=== PATIENT | male | born 1930 | race Caucasian/White ===

== ENCOUNTER 2019-07-19 14:39 | Inpatient (IN) | payer MEDICARE, BC ==
[2019-07-19] MEDS ORDERED: ORPHENADRINE 30 MG/ML 2 ML VIAL IVP STA (14:52)
--- NOTE | 2019-07-19 15:18 | ED ---
Back Pain HPI <Lalo Lewis - Last Filed: 07/19/19 18:22> - General Source: patient, EMS, RN notes reviewed, old records reviewed Limitations: physical limitation <Zoila Jo - Last Filed: 07/19/19 19:45> - General Chief Complaint: Back Pain/Injury Stated Complaint: Flank/ Back Pain Time Seen by Provider: 07/19/19 14:41 - History of Present Illness Initial Comments: Patient is a 89-year-old male presents emergency department today for evaluation with chief complaint of left-sided rib pain, mid back pain after twisting motion at home. Patient reports that his pain is worse with movement specifically with any left arm raising above his head. He states that he has no significant abdominal pain. He reports no radiation down the leg. He denies any change in urination or bowel habits. Patient reports that he does have history of hypertension and is compliant with medication. Patient arrives via EMS today. Patient denies any recent fever, chills, shortness of breath, chest pain, back pain, abdominal pain, nausea vomiting, numbness or tingling, dysuria or hematuria, constipation or diarrhea, headaches or visual changes, or any other current symptoms (Zoila Jo) - Related Data Home Medications Medication Instructions Recorded Confirmed Atenolol 25 mg PO DAILY 07/19/19 07/19/19 Hydrochlorothiazide 12.5 mg PO DAILY 07/19/19 07/19/19 Simvastatin 40 mg PO DAILY 07/19/19 07/19/19 Allergies Allergy/AdvReac Type Severity Reaction Status Date / Time No Known Allergies Allergy Verified 07/19/19 14:51 Review of Systems ROS Other: All systems not noted in ROS Statement are negative. <Lalo Lewis - Last Filed: 07/19/19 18:22> ROS Other: All systems not noted in ROS Statement are negative. <Zoila Jo - Last Filed: 07/19/19 19:45> ROS Statement: Those systems with pertinent positive or pertinent negative responses have been documented in the HPI. Past Medical History Past Medical History: Hyperlipidemia, Hypertension History of Any Multi-Drug Resistant Organisms: None Reported Past Surgical History: No Surgical Hx Reported Past Psychological History: No Psychological Hx Reported Smoking Status: Former smoker Past Alcohol Use History: None Reported Past Drug Use History: None Reported <Zoila Jo - Last Filed: 07/19/19 19:45> General Exam Limitations: physical limitation General appearance: alert, in no apparent distress Head exam: Present: atraumatic, normocephalic, normal inspection Eye exam: Present: normal appearance, PERRL, EOMI. Absent: scleral icterus, conjunctival injection, periorbital swelling ENT exam: Present: normal exam, mucous membranes moist Neck exam: Present: normal inspection. Absent: tenderness, meningismus, lymphadenopathy Respiratory exam: Present: normal lung sounds bilaterally. Absent: respiratory distress, wheezes, rales, rhonchi, stridor Cardiovascular Exam: Present: regular rate GI/Abdominal exam: Present: soft, normal bowel sounds. Absent: distended, tenderness, guarding, rebound, rigid Extremities exam: Present: normal inspection, full ROM, normal capillary refill. Absent: tenderness, pedal edema, joint swelling, calf tenderness Back exam: Present: normal inspection, tenderness (mid thoracic and lumbar spine and left rib area) Neurological exam: Present: alert, oriented X3, CN II-XII intact Psychiatric exam: Present: normal affect, normal mood Skin exam: Present: warm, dry, intact, normal color. Absent: rash <Zoila Jo - Last Filed: 07/19/19 19:45> - General Exam Comments Initial Comments: 89 year old male, no acute distress. (Zoila Jo) Course Vital Signs 07/19/19 07/19/19 07/19/19 14:47 16:00 17:20 Temperature 98.1 F Pulse Rate 69 88 87 Respiratory 20 20 26 H Rate Blood Pressure 180/90 175/74 186/92 O2 Sat by Pulse 95 97 90 L Oximetry 07/19/19 07/19/19 07/19/19 17:38 18:00 18:30 Temperature Pulse Rate 103 H 77 69 Respiratory 30 H 25 H 24 Rate Blood Pressure 165/82 156/82 153/79 O2 Sat by Pulse 90 L 97 97 Oximetry 07/19/19 18:50 Temperature Pulse Rate 83 Respiratory 24 Rate Blood Pressure 153/71 O2 Sat by Pulse 99 Oximetry Medical Decision Making - Lab Data Result diagrams: 07/19/19 15:00 07/19/19 15:00 <Lalo Lewis - Last Filed: 07/19/19 18:22> - Lab Data Result diagrams: 07/19/19 15:00 07/19/19 15:00 - Radiology Data Radiology results: report reviewed <Zoila Jo - Last Filed: 07/19/19 19:45> - Medical Decision Making Patient reevaluated by myself, Dr. Lewis. Patient denies any dyspnea prior to computed tomography scan. Patient presented with respirator distress following computed tomography scan. Patient and family updated. Patient does have rales diffusely on exam. CT report reviewed. Case was discussed with Dr. Webster, who will consult. Patient is in no respiratory distress while on BiPAP. (aLlo Lewis) Patient's an 89-year-old male who presents emergency department today with initial onset of thoracic and lumbar back pain with twisting motion reading on the left rib. Patient arrives hypertensive was complaining of some pain. At this time Patient is x-rays were shown concern for some compression fracture of T 12 and L1. Discussed the concern for possible aorta after medic change on x- ray and computed tomography scan was ordered with patient's back discomfort and this history. Patient had CAT scan of abdomen and pelvis with contrast and attention to lumbar spine. When Patient returned from CAT scan he had significant dyspnea and presented with respiratory distress. Initially this was less be ALLERGIC reaction however Patient did not have hives. He was given Solu-Medrol and Benadryl continue to have rales and rhonchi and his lung exam. Chest x-ray is completed and shows evidence of diffuse pulmonary edema. Patient was started on BiPAP and Nitropaste. Patient after receiving BiPAP has been resting comfortably bed in much improved. He is still complaining of some back discomfort. CT shows no evidence of any significant R Mena and denied the evidence of compression fractures of seen on x-ray. With patient's acute respiratory distress with BiPAP that is now resolved with solid keep the Patient in the hospital today. I discussed the case with nurse practitioner for [facility]. (Zoila Jo) - Lab Data Lab Results 07/19/19 07/19/19 07/19/19 Range/Units 15:00 15:00 15:00 WBC 7.0 (3.8-10.6) k/uL RBC 4.43 (4.30-5.90) m/uL Hgb 14.0 (13.0-17.5) gm/dL Hct 42.7 (39.0-53.0) % MCV 96.5 (80.0-100.0) fL MCH 31.7 (25.0-35.0) pg MCHC 32.8 (31.0-37.0) g/dL RDW 13.6 (11.5-15.5) % Plt Count 225 (150-450) k/uL Neutrophils % 60 % Lymphocytes % 27 % Monocytes % 5 % Eosinophils % 6 % Basophils % 1 % Neutrophils # 4.2 (1.3-7.7) k/uL Lymphocytes # 1.9 (1.0-4.8) k/uL Monocytes # 0.3 (0-1.0) k/uL Eosinophils # 0.4 (0-0.7) k/uL Basophils # 0.0 (0-0.2) k/uL Sodium 139 (137-145) mmol/L Potassium 4.0 (3.5-5.1) mmol/L Chloride 105 (98-107) mmol/L Carbon Dioxide 26 (22-30) mmol/L Anion Gap 8 mmol/L BUN 17 (9-20) mg/dL Creatinine 0.96 (0.66-1.25) mg/dL Est GFR (CKD-EPI)AfAm 82 (>60 ml/min/1.73 sqM) Est GFR (CKD-EPI)NonAf 71 (>60 ml/min/1.73 sqM) Glucose 100 H (74-99) mg/dL Calcium 9.3 (8.4-10.2) mg/dL NT-Pro-B Natriuret Pep 1100 pg/mL Urine Color Urine Appearance (Clear) Urine pH (5.0-8.0) Ur Specific [place] (1.001-1.035) Urine Protein (Negative) Urine Glucose (UA) (Negative) Urine Ketones (Negative) Urine Blood (Negative) Urine Nitrite (Negative) Urine Bilirubin (Negative) Urine Urobilinogen (<2.0) mg/dL Ur Leukocyte Esterase (Negative) Urine RBC (0-5) /hpf Urine WBC (0-5) /hpf Hyaline Casts (0-2) /lpf 05/25/20 Range/Units 18:56 WBC (3.8-10.6) k/uL RBC (4.30-5.90) m/uL Hgb (13.0-17.5) gm/dL Hct (39.0-53.0) % MCV (80.0-100.0) fL MCH (25.0-35.0) pg MCHC (31.0-37.0) g/dL RDW (11.5-15.5) % Plt Count (150-450) k/uL Neutrophils % % Lymphocytes % % Monocytes % % Eosinophils % % Basophils % % Neutrophils # (1.3-7.7) k/uL Lymphocytes # (1.0-4.8) k/uL Monocytes # (0-1.0) k/uL Eosinophils # (0-0.7) k/uL Basophils # (0-0.2) k/uL Sodium (137-145) mmol/L Potassium (3.5-5.1) mmol/L Chloride (98-107) mmol/L Carbon Dioxide (22-30) mmol/L Anion Gap mmol/L BUN (9-20) mg/dL Creatinine (0.66-1.25) mg/dL Est GFR (CKD-EPI)AfAm (>60 ml/min/1.73 sqM) Est GFR (CKD-EPI)NonAf (>60 ml/min/1.73 sqM) Glucose (74-99) mg/dL Calcium (8.4-10.2) mg/dL NT-Pro-B Natriuret Pep pg/mL Urine Color Light Yellow Urine Appearance Clear (Clear) Urine pH 5.5 (5.0-8.0) Ur Specific [place] >1.050 H (1.001-1.035) Urine Protein Negative (Negative) Urine Glucose (UA) Negative (Negative) Urine Ketones Trace H (Negative) Urine Blood Trace H (Negative) Urine Nitrite Negative (Negative) Urine Bilirubin Negative (Negative) Urine Urobilinogen <2.0 (<2.0) mg/dL Ur Leukocyte Esterase Negative (Negative) Urine RBC 1 (0-5) /hpf Urine WBC <1 (0-5) /hpf Hyaline Casts 1 (0-2) /lpf Disposition <Lalo Lewis - Last Filed: 07/19/19 18:22> Is patient prescribed a controlled substance at d/c from ED?: No Time of Disposition: 19:45 <Aranyos,Zoila - Last Filed: 07/19/19 19:45> Clinical Impression: Acute pulmonary edema, Back pain Disposition: ADMITTED IP TO THIS HOSP Condition: Stable Referrals: [facility],Clinic [Primary Care Provider] - 1-2 days
[2019-07-19 15:21] LABS: Basophils % (A) 1 %; Eosinophils # (A) 0.4 k/uL (0-0.7); Eosinophils % (A) 6 %; HCT 42.7 % (39.0-53.0); Lymphocytes # (A) 1.9 k/uL (1.0-4.8); Lymphocytes % (A) 27 %; MCH 31.7 pg (25.0-35.0); MCHC 32.8 g/dL (31.0-37.0); MCV 96.5 fL (80.0-100.0); Mean Platelet Volume 8.3; Monocytes # (A) 0.3 k/uL (0-1.0); Monocytes % (A) 5 %; Neutrophils # (A) 4.2 k/uL (1.3-7.7); Neutrophils % (A) 60 %; Platelet Count 225 k/uL (150-450); RBC 4.43 m/uL (4.30-5.90); RDW 13.6 % (11.5-15.5)
--- NOTE | 2019-07-19 15:27 | XR ---
EXAMINATION TYPE: XR lumbar spine 2 or 3V DATE OF EXAM: 07/19/2019 CLINICAL HISTORY: Back pain TECHNIQUE: Frontal and lateral images of the lumbar spine are obtained. COMPARISON: None FINDINGS: There are 5 lumbar type vertebral bodies identified. Multilevel intervertebral disc space narrowing, anterior osteophytes and facet arthropathy. Minimal retrolisthesis of L4 on L5 is likely on a degenerative basis. Very mild vertebral body height loss of L1 and T12 have less than 10% anterior cortex height loss. Extensive atherosclerosis of the abdominal aorta. Possible right renal calculi versus atherosclerosis. IMPRESSION: 1. Mild age indeterminate compression deformities of L1 and T12. 2. 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
--- NOTE | 2019-07-19 15:30 | XR ---
EXAMINATION TYPE: XR ribs LT w pa chest xray DATE OF EXAM: 07/19/2019 CLINICAL HISTORY: Left rib pain TECHNIQUE: Single frontal view of the chest is obtained. 2 views of the left ribs were also obtained COMPARISON: 09/12/2011 FINDINGS: Cardiomediastinal silhouette is enlarged and there is chronic hilar prominence. Right basil ar patchy opacity appears as atelectasis. There is diffuse osseous demineralization present. Degenera tive changes of the shoulders are moderate. No acute displaced left rib fractures seen. IMPRESSION: Right basilar patchy opacity, likely atelectasis. No acute displaced left rib fracture.
[2019-07-19 15:31] LABS: Calcium 9.3 mg/dL (8.4-10.2)
[2019-07-19] MEDS ORDERED: diphenhydrAMINE 50 MG/ML 1 ML VIAL IVP STA (17:30)
--- NOTE | 2019-07-19 17:30 | CT ---
EXAMINATION TYPE: CT abdomen pelvis w con DATE OF EXAM: 07/19/2019 COMPARISON: None HISTORY: Left flank pain. CT DLP: 1286.3 mGycm Automated exposure control for dose reduction was used. CONTRAST: Performed with IV Contrast, patient injected with 100 mL of Isovue 300. There is 1.8 cm noncalcified nodule in the lingula left upper lobe. There is coarse interstitial infi ltrate at the posterior lung bases. There is 1.5 cm area cavitating density adjacent to the right harvey phragm. This could be area of bullous emphysema. There is no pleural effusion. There is no pericardia l effusion. There is small hiatal hernia. The remainder of the stomach is intact. Liver and spleen ap pear normal. Bile ducts are not dilated. Gallbladder appears normal. There is no pancreatic mass. The re is no adrenal mass. Kidneys have normal size. There is no hydronephrosis. There are multiple renal cortical cysts mainly on the right side that measure up to 5 cm. There is no hydronephrosis. There i s no retroperitoneal adenopathy. Ureters are not dilated. Bladder distends smoothly. There is no ingu inal hernia. There is no free fluid in the pelvis. There is no ascites. There is no free air. There is no sign of a bowel obstruction. Appendix appears normal. Lumbar spine is intact. Abdominal aorta is atheromatous. The bony pelvis is intact. There are spondylotic changes in the lumbar spine with moderate narrowing of L4-5 disc. IMPRESSION: Interstitial infiltrates at the lung bases increased compared to chest CT scan 09/23/2011. There is no ncalcified lingula mass suspicious for tumor which is a change compared to old CT scan. Renal cortical cysts increased compared to old exam.
[2019-07-19] MEDS ORDERED: FAMOTIDINE 20 MG/2 ML VIAL IV STA (17:31)
[2019-07-19] MEDS ORDERED: methylPREDNISolone SOD SUCCI 125 MG/2 ML VIAL IV STA (17:31)
--- NOTE | 2019-07-19 17:37 | CT ---
EXAMINATION TYPE: CT lumbar spine w con DATE OF EXAM: 07/19/2019 COMPARISON: None HISTORY: Left flank pain. CT DLP: mGycm Automated exposure control for dose reduction was used. CONTRAST: Performed with IV Contrast, patient injected with mL of Isovue 300. Lumbar vertebra have normal alignment. There is narrowing at L4-5 disc. There is mild narrowing of th e other lumbar disc spaces. There is hypertrophic spurring of the endplates throughout the lumbar spi ne. There is no compression fracture. Posterior elements are intact. There is multilevel hypertrophic lumbar facet arthropathy. There is moderate bony spinal stenosis at L4-5 due to facet arthropathy an d endplate spur formation. There is no lumbar paraspinal mass. The sacroiliac joints appear intact. A bdominal aorta is atheromatous. I see no focal bone destruction. IMPRESSION: Multilevel spondylotic changes. 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 No fracture seen.
[2019-07-19] MEDS ORDERED: FUROSEMIDE 10 MG/ML 4 ML VIAL IV STA (17:46)
--- NOTE | 2019-07-19 17:56 | XR ---
EXAMINATION TYPE: XR chest 1V DATE OF EXAM: 07/19/2019 COMPARISON: Today HISTORY: Difficulty breathing TECHNIQUE: FINDINGS: There is pulmonary interstitial and airspace edema. Heart is slightly enlarged. Thoracic ao rta is atheromatous. IMPRESSION: Pulmonary edema probably due to congestive heart failure which is worse than exam 2 hours ago.
[2019-07-19] MEDS ORDERED: NITROGLYCERIN OINT 1 INCH/GM PACKET TOPICAL STA (18:00)
[2019-07-19 19:30] LABS: Appearance,Urine Clear (Clear); Bilirubin,Urine Negative (Negative); Blood,Urine Trace (Negative); Color,Urine Light Yellow; Glucose,Urine (UA) Negative (Negative); Hyaline Casts,Urine 1 /lpf (0-2); Ketones,Urine Trace (Negative); Leukocyte Esterase,Urine Negative (Negative); Nitrite,Urine Negative (Negative); PH, Urine 5.5 (5.0-8.0); Protein,Urine Negative (Negative); RBC,Urine 1 /hpf (0-5); Urobilinogen,Urine <2.0 mg/dL (<2.0); WBC,Urine <1 /hpf (0-5)
[2019-07-19 19:34] LABS: Specific Gravity,Urine >1.050 (1.001-1.035)
[2019-07-19] MEDS ORDERED: MORPHINE SULFATE 4 MG/ML SYRINGE IVP STA (19:45)
[2019-07-19] MEDS ORDERED: MORPHINE SULFATE 4 MG/ML SYRINGE IV PRN (19:50)
[2019-07-19] MEDS ORDERED: NALOXONE 0.4 MG/ML 1 ML VIAL IV PRN (19:50)
[2019-07-19 19:57] LABS: Partial Thromboplastin Time 21.5 sec (22.0-30.0)
[2019-07-19] MEDS: SODIUM CHLORIDE 0.9% 1,000 ML IV SCH (21:00)
[2019-07-20] MEDS: HYDROmorphone 0.5 MG/0.5 ML SYRINGE IVP PRN ×3 (00:06→11:32)
[2019-07-20] MEDS: SODIUM CHLORIDE 0.9% 1,000 ML IV SCH (05:53)
[2019-07-20] MEDS: FUROSEMIDE 10 MG/ML 4 ML VIAL IV SCH ×2 (07:59→20:01)
[2019-07-20] MEDS: ATORVASTATIN 20 MG TAB PO SCH (11:04)
[2019-07-20] MEDS: PANTOPRAZOLE 40 MG/10 ML VIAL IV SCH (11:04)
[2019-07-20] MEDS: ATENOLOL 25 MG TAB PO SCH (11:04)
--- NOTE | 2019-07-20 12:03 | P.CNPUL ---
History of Present Illness Consult date: 07/20/19 Requesting physician: Mary Jane Hines Chief complaint: left chest wall pain, shortness of breath History of present illness: 89-year-old white male patient with past medical history of hypertension, hyperlipidemia, former smoker, patient follows at the [place] [facility] [place] for [facility]. she presented to the emergency department on 07/19/2019 per EMS for evaluation of severe left-sided rib pain and mid back pain after twisting motion at home. He states his pain is worse with movement and deep breathing. His had no fever or chills, no nausea vomiting or diarrhea, no cough, no recent shortness of breath, no chest pain, no abdominal pain, no headaches, no visual changes. Denies any trauma to the left chest. lumbar spine x-ray showed mild age indeterminate compression deformities of L1 and T12, and advanced multilevel degenerative disc disease of the lumbar spine and extensive atherosclerosis of the abdominal aorta.chest x-ray with x-ray of the ribs showed right basilar patchy opacity likely related to atelectasis, no acute displaced rib fractures on the left. CT of the abdomen and pelvis showed noncalcified lingular mass suspicious for tumor measuring 1.[address] showed multilevel spondylotic changes, L4 through L5 bony spinal stenosis no fracture seen. lab work showed CBC within normal limits, proBNP was 1100, and troponin was less than 0.012. urinalysis showed trace ketones and blood. patient is daughter is at the bedside, and she stated patient was doing well other than having the left rib pain, however after he got back from the CT scan he developed acute respiratory distress, toxemia his pulse ox was only 74 on room air, quite pale, with audible congestion and required BiPAP support. he was given Lasix, breathing treatments and nitroglycerin. Currently improved, curr ently on 4 L of oxygen and a pulse ox of 96%, he is on 1 L negative fluid balance, his chest x-ray showed pulmonary edema. Review of Systems All systems: negative Constitutional: Denies chills, Denies fever Eyes: denies blurred vision, denies pain Ears, nose, mouth and throat: Denies headache, Denies sore throat Cardiovascular: Reports chest pain, Reports orthopnea, Reports shortness of breath Respiratory: Reports dyspnea, Reports pain on inspiration, Denies cough Gastrointestinal: Denies abdominal pain, Denies diarrhea, Denies nausea, Denies vomiting Musculoskeletal: Denies myalgias Integumentary: Denies pruritus, Denies rash Neurological: Denies numbness, Denies weakness Psychiatric: Denies anxiety, Denies depression Endocrine: Denies fatigue, Denies weight change Past Medical History Past Medical History: Cancer, Hyperlipidemia, Hypertension Additional Past Medical History / Comment(s): skin [place] History of Any Multi-Drug Resistant Organisms: None Reported Past Surgical History: No Surgical Hx Reported Past Anesthesia/Blood Transfusion Reactions: No Reported Reaction Past Psychological History: No Psychological Hx Reported Smoking Status: Former smoker Past Alcohol Use History: None Reported Past Drug Use History: None Reported Medications and Allergies Home Medications Medication Instructions Recorded Confirmed Type Atenolol 25 mg PO DAILY 07/19/19 07/19/19 History Hydrochlorothiazide 12.5 mg PO DAILY 07/19/19 07/19/19 History Simvastatin 40 mg PO DAILY 07/19/19 07/19/19 History Allergies Allergy/AdvReac Type Severity Reaction Status Date / Time No Known Allergies Allergy Verified 07/19/19 14:51 Physical Exam Vitals: Vital Signs Temp Pulse Pulse Resp BP BP Pulse Ox 07/20/19 11:03 61 18 153/77 96 07/20/19 07:53 97.0 F L 62 18 151/74 96 07/20/19 04:14 97.1 F L 73 18 137/68 95 07/20/19 04:00 73 18 07/20/19 00:00 94 L 07/19/19 23:00 98.1 F 87 20 140/92 95 07/19/19 22:00 71 17 130/73 97 07/19/19 21:00 82 21 118/65 96 07/19/19 19:59 98.0 F 87 22 146/76 96 07/19/19 18:50 83 24 153/71 99 07/19/19 18:30 69 24 153/79 97 07/19/19 18:00 77 25 H 156/82 97 07/19/19 17:38 103 H 30 H 165/82 90 L 07/19/19 17:20 87 26 H 186/92 90 L 07/19/19 16:00 88 20 175/74 97 07/19/19 14:47 98.1 F 69 20 180/90 95 Intake and Output 07/19/19 07/20/19 07/20/19 22:59 06:59 14:59 Output Total 600 400 Balance -600 -400 Output: Urine 600 400 Other: Voiding Method Urinal # Voids 1 1 Weight 86.183 kg GENERAL EXAM: Alert, very pleasant, 89-year-old white male on 4 L of oxygen the pulse ox of 96%, comfortable in no apparent distress. HEAD: Normocephalic/atraumatic. EYES: Normal reaction of pupils, equal size. Conjunctiva pink, sclera white. NOSE: Clear with pink turbinates. THROAT: No erythema or exudates. NECK: No masses, no JVD, no thyroid enlargement, no adenopathy. CHEST: No chest wall deformity. Symmetrical expansion. chest wall tenderness in the left lower anterior chest wall LUNGS: Equal air entry with no crackles, wheeze, rhonchi or dullness. CVS: Regular rate and rhythm, normal S1 and S2, no gallops, no murmurs, no rubs ABDOMEN: Soft, nontender. No hepatosplenomegaly, normal bowel sounds, no guarding or rigidity. EXTREMITIES: No clubbing, no edema, no cyanosis, 2+ pulses and upper and lower extremities. MUSCULOSKELETAL: Muscle strength and tone normal. SPINE: No scoliosis or deformity SKIN: No rashes CENTRAL NERVOUS SYSTEM: Alert and oriented -3. No focal deficits, tone is normal in all 4 extremities. PSYCHIATRIC: Alert and oriented -3. Appropriate affect. Intact judgment and insight. Results - Laboratory Findings CBC and BMP: 07/19/19 15:00 07/19/19 15:00 PT/INR, D-dimer PT 10.0 sec (9.0-12.0) 07/19/19 18:56 INR 1.0 (<1.2) 07/19/19 18:56 Abnormal lab findings: Abnormal Labs 07/19/19 07/19/19 07/19/19 15:00 18:56 18:56 APTT 21.5 L Glucose 100 H Ur Specific [place] >1.050 H Urine Ketones Trace H Urine Blood Trace H - Diagnostic Findings Chest x-ray: report reviewed, image reviewed Additional studies: CT of the lumbar spine, CT of the abdomen and pelvis, ribs with chest x-ray, lumbar spine x-ray Assessment and Plan Plan: Assessment: #1. Acute hypoxic respiratory failure, with possibility of acute pulmonary edema, fluid overload, possibly related to acute exacerbation of CHF with unknown ejection fraction, stability of vasovagal episode or possible reaction to IV contrast given for CT scan #2. left chest wall pain, left rib pain, CT of the of the abdomen and pelvis showed noncalcified nodule in the lingula left upper lobe measuring 1.8 cm, we'll need follow-up #3. degenerative disc disease of the lumbar spine #4. Hypertension #5. Hyperlipidemia #6. 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 Patient is off BiPAP support, currently on 4 L of oxygen, continue weaning FiO2, daily weights, accurate intake and output, daily electrolytes and renal profile. Follow-up chest x-ray in the morning. Patient is receiving pain medications, his left sided rib pain is better controlled, his CT of the abdomen and pelvis was reviewed, and there is a nodule in the left upper lobe will need to be followed up and investigated. we'll obtain a dedicated CT of the chest with contrast tomorrow, if renal profile remains normal. I performed a history & physical examination of the patient and discussed their management with my nurse practitioner, Shamika Olsen. I reviewed the nurse practitioner's note and agree with the documented findings and plan of care. Lung sounds are positive for diminished breath sounds. The findings and the impression was discussed with the patient. I attest to the documentation by the nurse practitioner. Time with Patient: Greater than 30
[2019-07-20] MEDS ORDERED: RX INFO: IV CONTRAST WAS GIVEN 1 EACH MISC MISCELLANE PRN (12:04)
--- NOTE | 2019-07-20 15:15 | P.HPIM ---
History of Present Illness Patient is a pleasant 89-year-old gentleman came in the for low back pain underwent a lumbar spinal x-ray followed by CT which showed which showed multilevel degenerative disc disease. After procedures patient went into respiratory failure found to have pulmonary edema with only mildly elevated BNP doesn't have any JVD and exam. Patient is being admitted for this reason patient also underwent a chest CAT scan as patient was complaining of pleuritic chest pain in the rib cage area because of pleuritic nature pulmonology is req uesting a CT angios with contrast as patient ended up having pulmonary edema after diet patient will be prepped with the steroids before he goes for another contrast CT. Patient on the computed tomography scan of the chest showed a lingular mass and pulmonology is further evaluating this. Patient's BNP is only 1100. Post the computed tomography scan and postcontrast patient's pulse ox was 79% on room air and ended up being on BiPAP presently on 2 L of Parkinson's and saturating very well at this time patient received Lasix 1 with a 1 L negative fluid balance patient is receiving IV fluids those were discontinued. Review of Systems REVIEW OF SYSTEMS: CONSTITUTIONAL: No fever, no malaise, no fatigue. HEENT: No recent visual problems or hearing problems. Denied any sore throat. CARDIOVASCULAR: No chest pain, orthopnea, PND, no palpitations, no syncope. PULMONARY: no cough, no hemoptysis. GASTROINTESTINAL: No diarrhea, no nausea, no vomiting, no abdominal pain. NEUROLOGICAL: No headaches, no weakness, no numbness. HEMATOLOGICAL: Denies any bleeding or petechiae. GENITOURINARY: Denies any burning micturition, frequency, or urgency. MUSCULOSKELETAL/RHEUMATOLOGICAL: As mentioned in HPI ENDOCRINE: Denies any polyuria or polydipsia. The rest of the 14-point review of systems is negative. Past Medical History Past Medical History: Cancer, Hyperlipidemia, Hypertension Additional Past Medical History / Comment(s): skin CA History of Any Multi-Drug Resistant Organisms: None Reported Past Surgical History: No Surgical Hx Reported Past Anesthesia/Blood Transfusion Reactions: No Reported Reaction Past Psychological History: No Psychological Hx Reported Smoking Status: Former smoker Past Alcohol Use History: None Reported Past Drug Use History: None Reported Medications and Allergies Home Medications Medication Instructions Recorded Confirmed Type Atenolol 25 mg PO DAILY 07/19/19 07/19/19 History Hydrochlorothiazide 12.5 mg PO DAILY 07/19/19 07/19/19 History Simvastatin 40 mg PO DAILY 07/19/19 07/19/19 History Allergies Allergy/AdvReac Type Severity Reaction Status Date / Time Iodinated Contrast Media AdvReac Severe shortness Verified 07/20/19 13:38 of breath Physical Exam Vitals: Vital Signs Temp Pulse Pulse Resp BP BP Pulse Ox 07/20/19 11:03 61 18 153/77 96 07/20/19 07:53 97.0 F L 62 18 151/74 96 07/20/19 04:14 97.1 F L 73 18 137/68 95 07/20/19 04:00 73 18 07/20/19 00:00 94 L 07/19/19 23:00 98.1 F 87 20 140/92 95 07/19/19 22:00 71 17 130/73 97 07/19/19 21:00 82 21 118/65 96 07/19/19 19:59 98.0 F 87 22 146/76 96 07/19/19 18:50 83 24 153/71 99 07/19/19 18:30 69 24 153/79 97 07/19/19 18:00 77 25 H 156/82 97 07/19/19 17:38 103 H 30 H 165/82 90 L 07/19/19 17:20 87 26 H 186/92 90 L 07/19/19 16:00 88 20 175/74 97 Intake and Output 07/20/19 07/20/19 07/20/19 06:59 14:59 22:59 Intake Total 400 Output Total 400 Balance -400 400 Intake: Intake, IV Titration 400 Amount Sodium Chloride 0.9% 1, 400 000 ml @ 100 mls/hr IV . Q10H [facility] Rx#:[id number] Output: Urine 400 Other: Voiding Method Urinal # Voids 1 Weight 86.183 kg PHYSICAL EXAMINATION: GENERAL: The patient is alert and oriented x3, not in any acute distress. Obese HEENT: Pupils are round and equally reacting to light. EOMI. No scleral icterus. No conjunctival pallor. Normocephalic, atraumatic. No pharyngeal erythema. No thyromegaly. CARDIOVASCULAR: S1 and S2 present. No murmurs, rubs, or gallops. PULMONARY: Chest is clear to auscultation, no wheezing or crackles. ABDOMEN: Soft, nontender, nondistended, normoactive bowel sounds. No palpable organomegaly. MUSCULOSKELETAL: No joint swelling or deformity. EXTREMITIES: No cyanosis, clubbing, or pedal edema. NEUROLOGICAL: Gross neurological examination did not reveal any focal deficits. SKIN: No rashes. Results CBC & Chem 7: 07/19/19 15:00 07/19/19 15:00 Labs: Abnormal Lab Results - Last 24 Hours (Table) 07/19/19 07/19/19 07/19/19 Range/Units 15:00 18:56 18:56 APTT 21.5 L (22.0-30.0) sec Glucose 100 H (74-99) mg/dL Ur Specific [place] >1.050 H (1.001-1.035) Urine Ketones Trace H (Negative) Urine Blood Trace H (Negative) Thrombosis Risk Factor Assmnt - Choose All That Apply Any of the Below Risk Factors Present?: No Other Risk Factors: Yes Each Risk Factor Represents 3 Points: Age 75 years or older Other congenital or acquired thrombophilia - If yes, enter type in comment: No Thrombosis Risk Factor Assessment Total Risk Factor Score: 3 Thrombosis Risk Factor Assessment Level: Moderate Risk Assessment and Plan Plan: Acute hypoxic respiratory failure possibly of pulmonary edema CHF cannot be ruled out patient will undergo echocardiogram. Pulmonary edema can be a reaction to IV contrast. 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
[2019-07-20] MEDS: ACETAMINOPHEN TAB 325 MG TAB PO PRN (15:22)
[2019-07-20] MEDS: traMADol 50 MG TAB PO PRN (21:05)
[2019-07-21] MEDS: HYDROmorphone 0.5 MG/0.5 ML SYRINGE IVP PRN (01:29)
[2019-07-21 07:30] LABS: HCT 41.2 % (39.0-53.0); HGB 13.3 gm/dL (13.0-17.5); MCH 31.7 pg (25.0-35.0); MCHC 32.2 g/dL (31.0-37.0); MCV 98.3 fL (80.0-100.0); Mean Platelet Volume 8.5; Platelet Count 209 k/uL (150-450); RBC 4.19 m/uL (4.30-5.90); RDW 13.8 % (11.5-15.5); WBC 14.4 k/uL (3.8-10.6)
[2019-07-21 07:40] LABS: Calcium 8.4 mg/dL (8.4-10.2); Potassium 4.7 mmol/L (3.5-5.1)
--- NOTE | 2019-07-21 08:42 | XR ---
EXAMINATION TYPE: XR chest 1V portable DATE OF EXAM: 07/21/2019 HISTORY: Shortness of breath. COMPARISON: 07/19/2019 TECHNIQUE: Single view of the chest is submitted. FINDINGS: Demonstrated are scattered senescent parenchymal change. Near-complete resolution of pulmonary venous congestion and interstitial edema. Continued cardiomegal y Hilar and mediastinal structures are within normal limits. Degenerative changes are seen of the dorsal spine. IMPRESSION: 1. Near-complete resolution of pulmonary venous congestion and interstitial edema.
[2019-07-21] MEDS: ENOXAPARIN 40 MG/0.4 ML SYRINGE SQ SCH (09:00)
[2019-07-21] MEDS: ATENOLOL 25 MG TAB PO SCH (09:00)
[2019-07-21] MEDS: FUROSEMIDE 10 MG/ML 4 ML VIAL IV SCH (09:00)
[2019-07-21] MEDS: ATORVASTATIN 20 MG TAB PO SCH (09:00)
[2019-07-21] MEDS: PANTOPRAZOLE 40 MG/10 ML VIAL IV SCH (09:00)
[2019-07-21] MEDS: ACETAMINOPHEN TAB 325 MG TAB PO PRN (09:06)
[2019-07-21] MEDS: traMADol 50 MG TAB PO PRN (09:07)
--- NOTE | 2019-07-21 12:05 | P.CRDCN ---
History of Present Illness Consult date: 07/21/19 Requesting physician: Mary Jane Hines Chief complaint: Left-sided rib pain and back pain History of present illness: This is an 89-year-old white male patient with past medical history of hypertension, hyperlipidemia, former smoker, patient follows at the [facility] facility in [place] for [facility] services. she presented to the emergency department on 07/19/2019 per EMS for evaluation of severe left-sided rib pain and mid back p ain after twisting motion at home. He states his pain is worse with movement and deep breathing. His had no fever or chills, no nausea vomiting or diarrhea, no cough, no recent shortness of breath, no chest pain, no abdominal pain, no headaches, no visual changes. Denies any trauma to the left chest. lumbar spine x-ray showed mild age indeterminate compression deformities of L1 and T12, and advanced multilevel degenerative disc disease of the lumbar spine and extensive atherosclerosis of the abdominal aorta. Chest x-ray with x-ray of the ribs showed right basilar patchy opacity likely related to atelectasis, no acute displaced rib fractures on the left. CT of the abdomen and pelvis showed noncalcified lingular mass suspicious for tumor measuring 1.[address] showed multilevel spondylotic changes, L4 through L5 bony spinal stenosis no fracture seen. lab work showed CBC within normal limits, proBNP was 1100, and troponin was less than 0.012. urinalysis showed trace ketones and blood. patient is daughter is at the bedside, and she stated patient was doing well other than having the left rib pain, however after he got back from the CT scan he developed acute respiratory distress, hypoxemia, his pulse ox was only 74 on room air, quite pale, with audible congestion and required BiPAP support. He was given Lasix, breathing treatments and nitroglycerin. Currently improved, currently on 2 L of oxygen and a pulse ox of 97%, he is on 1 L negative fluid balance, his chest x-ray showed pulmonary edema. Blood pressure 152/72 with a heart rate in the 70s, temperature 97.7. He was seen and examined this morning, the patient states overall his breathing is significantly improved. Past Medical History Past Medical History: Cancer, Hyperlipidemia, Hypertension Additional Past Medical History / Comment(s): skin CA History of Any Multi-Drug Resistant Organisms: None Reported Past Surgical History: No Surgical Hx Reported Past Anesthesia/Blood Transfusion Reactions: No Reported Reaction Past Psychological History: No Psychological Hx Reported Smoking Status: Former smoker Past Alcohol Use History: None Reported Past Drug Use History: None Reported Medications and Allergies Home Medications Medication Instructions Recorded Confirmed Type Atenolol 25 mg PO DAILY 07/19/19 07/20/19 History Hydrochlorothiazide 12.5 mg PO DAILY 07/19/19 07/20/19 History Simvastatin 40 mg PO DAILY 07/19/19 07/20/19 History Allergies Allergy/AdvReac Type Severity Reaction Status Date / Time Iodinated Contrast Media AdvReac Severe shortness Verified 07/20/19 19:36 of breath Physical Exam Vitals: Vital Signs Temp Pulse Resp BP Pulse Ox 07/21/19 08:00 97.7 F 76 18 153/72 97 07/21/19 04:00 97.4 F L 66 16 152/73 96 07/20/19 23:45 97.9 F 61 18 152/67 95 07/20/19 19:55 53 L 18 07/20/19 19:52 97.7 F 53 L 18 157/71 96 07/20/19 15:10 98.0 F 60 18 138/76 95 Intake and Output 07/20/19 07/21/19 07/21/19 22:59 06:59 14:59 Intake Total 300 240 Output Total 1530 655 Balance -1230 -655 240 Intake: Oral 300 240 Output: Urine 1530 655 Other: Voiding Method Urinal Urinal # Voids 1 1 Weight 91.3 kg GENERAL EXAM: Alert, very pleasant, 89-year-old white male on 4 L of oxygen the pulse ox of 96%, comfortable in no apparent distress. HEAD: Normocephalic/atraumatic. EYES: Normal reaction of pupils, equal size. Conjunctiva pink, sclera white. NOSE: Clear with pink turbinates. THROAT: No erythema or exudates. NECK: No masses, no JVD, no thyroid enlargement, no adenopathy. CHEST: No chest wall deformity. Symmetrical expansion. chest wall tenderness in the left lower anterior chest wall LUNGS: Equal air entry with no crackles, wheeze, rhonchi or dullness. CVS: Regular rate and rhythm, normal S1 and S2, no gallops, no murmurs, no rubs ABDOMEN: Soft, nontender. No hepatosplenomegaly, normal bowel sounds, no guarding or rigidity. EXTREMITIES: No clubbing, no edema, no cyanosis, 2+ pulses and upper and lower extremities. MUSCULOSKELETAL: Muscle strength and tone normal. SPINE: No scoliosis or deformity SKIN: No rashes CENTRAL NERVOUS SYSTEM: Alert and oriented -3. No focal deficits, tone is normal in all 4 extremities. PSYCHIATRIC: Alert and oriented -3. Appropriate affect. Intact judgment and insight. Results 07/21/19 06:26 07/21/19 06:26 Cardiac Enzymes 07/20/19 Range/Units 12:02 Troponin I 0.018 (0.000-0.034) ng/mL CBC 07/21/19 Range/Units 06:26 WBC 14.4 H (3.8-10.6) k/uL RBC 4.19 L (4.30-5.90) m/uL Hgb 13.3 (13.0-17.5) gm/dL Hct 41.2 (39.0-53.0) % Plt Count 209 (150-450) k/uL Comprehensive Metabolic Panel 07/21/19 Range/Units 06:26 Sodium 140 (137-145) mmol/L Potassium 4.7 (3.5-5.1) mmol/L Chloride 101 (98-107) mmol/L Carbon Dioxide 31 H (22-30) mmol/L BUN 34 H (9-20) mg/dL Creatinine 1.21 (0.66-1.25) mg/dL Glucose 103 H (74-99) mg/dL Calcium 8.4 (8.4-10.2) mg/dL Current Medications Generic Name Dose Route Start Last Admin Trade Name Freq PRN Reason Stop Dose Admin Acetaminophen 650 mg 07/20/19 14:23 07/21/19 09:06 Tylenol Tab PO 650 mg Q4HR PRN Administration Fever and/ or Pain Atenolol 25 mg 07/20/19 09:00 07/21/19 09:00 Tenormin PO 25 mg DAILY RIGOBERTO Administration Atorvastatin Calcium 20 mg 07/20/19 09:00 07/21/19 09:00 Lipitor PO 20 mg DAILY RIGOBERTO Administration Enoxaparin Sodium 40 mg 07/21/19 09:00 07/21/19 09:00 Lovenox SQ 40 mg DAILY RIGOBERTO Administration Furosemide 40 mg 07/21/19 16:00 Lasix PO BID@0900,1600 RIGOBERTO Hydromorphone HCl 0.5 mg 07/19/19 19:50 07/21/19 01:29 Dilaudid IVP 0.5 mg Q3HR PRN Administration Moderate Pain Miscellaneous Information 1 each 07/20/19 12:04 Rx Info: Iv Contrast Was Given MISCELLANE 07/22/19 12:04 DAILY PRN Per Protocol Morphine Sulfate 4 mg 07/19/19 19:50 Morphine Sulfate (Inj) IV Q4HR PRN Severe Pain Naloxone HCl 0.2 mg 07/19/19 19:50 Narcan IV Q2M PRN Opioid Reversal Pantoprazole Sodium 40 mg 07/20/19 09:00 07/21/19 09:00 Protonix IV 40 mg DAILY RIGOBERTO Administration Tramadol HCl 50 mg 07/20/19 14:21 07/21/19 09:07 Ultram PO 50 mg QID PRN Administration Pain/Discomfort Intake and Output 07/20/19 07/21/19 07/21/19 22:59 06:59 14:59 Intake Total 300 240 Output Total 1530 655 Balance -1230 -655 240 Intake: Oral 300 240 Output: Urine 1530 655 Other: Voiding Method Urinal Urinal # Voids 1 1 Weight 91.3 kg 07/21/19 06:26 07/21/19 06:26 EKG Interpretations (text) EKG shows a normal sinus rhythm with a left bundle-branch block pattern Assessment and Plan Plan: Assessment and plan: #1. Acute hypoxic respiratory failure, with evidence of acute pulmonary edema, fluid overload, possibly related to acute exacerbation of CHF with unknown ejection fraction, possible reaction to IV contrast given for CT scan #2. left rib pain, CT of the of the abdomen and pelvis showed noncalcified nodule in the lingula left upper lobe measuring 1.8 cm #3. degenerative disc disease of the lumbar spine #4. Hypertension #5. Hyperlipidemia #6. Former smoker, patient carries a [id number] smoking history, currently in remission Plan: We will obtain an echocardiogram with Doppler study. Continue current dose of IV Lasix. Continue to monitor the intake and output along with daily weights and daily lytes BUN and creatinine. Further recommendations to follow. DNP note has been reviewed, I agree with a documented findings and plan of care. Patient was seen and examined.
--- NOTE | 2019-07-21 13:56 | P.PN ---
Subjective Progress Note Date: 07/21/19 Principal diagnosis: left chest pain, shortness of breath 89-year-old white male patient with past medical history of hypertension, hyperlipidemia, former smoker, patient follows at the [facility] facility in [facility] services. she presented to the emergency department on 07/19/2019 per EMS for evaluation of severe left-sided rib pain and mid back pain after twisting motion at home. He states his pain is worse with movement and deep breathing. His had no fever or chills, no nausea vomiting or diarrhea, no cough, no recent shortness of breath, no chest pain, no abdominal pain, no headaches, no visual changes. Denies any trauma to the left chest. lumbar spine x-ray showed mild age indeterminate compression deformities of L1 and T12, and advanced multilevel degenerative disc disease of the lumbar spine and extensive atherosclerosis of the abdominal aorta.chest x-ray with x-ray of the ribs showed right basilar patchy opacity likely related to atelectasis, no acute displaced rib fractures on the left. CT of the abdomen and pelvis showed noncalcified lingular mass suspicious for tumor measuring 1.[address] showed multilevel spondylotic changes, L4 through L5 bony spinal stenosis no fracture seen. lab work showed CBC within normal limits, proBNP was 1100, and troponin was less than 0.012. urinalysis showed trace ketones and blood. patient is daugh ter is at the bedside, and she stated patient was doing well other than having the left rib pain, however after he got back from the CT scan he developed acute respiratory distress, toxemia his pulse ox was only 74 on room air, quite pale, with audible congestion and required BiPAP support. he was given Lasix, breathing treatments and nitroglycerin. Currently improved, currently on 4 L of oxygen and a pulse ox of 96%, he is on 1 L negative fluid balance, his chest x- ray showed pulmonary edema. On 07/21/2019 patient seen in follow-up on selective care unit, he is awake and alert, in no acute distress, 2 L of oxygen his pulse ox was 97%, at the time of our evaluation patient was off the oxygen altogether. Breathing is comfortable, no shortness of breath, lung sounds are clear to auscultation, his had no fever or chills, today's chest x-ray shows near complete resolution of pulmonary v enous congestion and interstitial edema.patient is in -1.4 liters fluid balance over the last 24 hours, today's labs have been reviewed, white blood cell count is 14.4, 11 was 13.3, electrolytes were unremarkable with the exception of CO2 which is a 31 on today's labs, B1 is 34, and creatinine is 1.21. Troponins were less than 0.012, and 0.018, follow-up proBNP came back at 1210. echocardiogram h as been completed, results are pending. pain is controlled, patient is sitting up in the chair, he is having no acute complaints. He has been transitioned to oral Lasix of 40 mg twice daily. The patient's daughter was very concerned about another CT evaluation, this time of his chest with IV contrast in relation to this episode of possibility of ALLERGIC reaction to contrast. At this time we will clear the patient for discharge home today, and we'll recommend outpatient follow-up and outpatient PET scan Objective - Vital Signs Vital signs: Vital Signs Temp 97.7 F 07/21/19 08:00 Pulse 76 07/21/19 08:00 Resp 18 07/21/19 08:00 BP 153/72 07/21/19 08:00 Pulse Ox 97 07/21/19 08:00 Intake & Output 07/20/19 07/21/19 07/21/19 18:59 06:59 18:59 Intake Total 400 300 480 Output Total 1000 1185 Balance -600 -885 480 Weight 91.3 kg Intake: Intake, IV Titration 400 Amount Sodium Chloride 0.9% 1, 400 000 ml @ 100 mls/hr IV . Q10H [facility] Rx#:[id number] Oral 300 480 Output: Urine 1000 1185 Other: Voiding Method Urinal Urinal # Voids 1 - Exam GENERAL EXAM: Alert, very pleasant, 89-year-old white male on 2 L of oxygen the pulse ox of 97%, comfortable in no apparent distress. HEAD: Normocephalic/atraumatic. EYES: Normal reaction of pupils, equal size. Conjunctiva pink, sclera white. NOSE: Clear with pink turbinates. THROAT: No erythema or exudates. NECK: No masses, no JVD, no thyroid enlargement, no adenopathy. CHEST: No chest wall deformity. Symmetrical expansion. chest wall tenderness in the left lower anterior chest wall LUNGS: Equal air entry with no crackles, wheeze, rhonchi or dullness. CVS: Regular rate and rhythm, normal S1 and S2, no gallops, no murmurs, no rubs ABDOMEN: Soft, nontender. No hepatosplenomegaly, normal bowel sounds, no guarding or rigidity. EXTREMITIES: No clubbing, no edema, no cyanosis, 2+ pulses and upper and lower extremities. MUSCULOSKELETAL: Muscle strength and tone normal. SPINE: No scoliosis or deformity SKIN: No rashes CENTRAL NERVOUS SYSTEM: Alert and oriented -3. No focal deficits, tone is normal in all 4 extremities. PSYCHIATRIC: Alert and oriented -3. Appropriate affect. Intact judgment and insight. - Labs CBC & Chem 7: 07/21/19 06:26 07/21/19 06:26 Labs: Abnormal Lab Results - Last 24 Hours (Table) 07/21/19 07/21/19 Range/Units 06:26 06:26 WBC 14.4 H (3.8-10.6) k/uL RBC 4.19 L (4.30-5.90) m/uL Carbon Dioxide 31 H (22-30) mmol/L BUN 34 H (9-20) mg/dL Glucose 103 H (74-99) mg/dL Assessment and Plan Plan: Assessment: #1. Acute hypoxic respiratory failure, with possibility of acute pulmonary edema, fluid overload, possibly related to acute exacerbation of CHF with unknown ejection fraction, possibility of vasovagal episode or possible reaction to IV contrast given for CT scan #2. left chest wall pain, left rib pain, CT of the of the abdomen and pelvis ryan wed noncalcified nodule in the lingula left upper lobe measuring 1.8 cm, we'll need follow-up #3. degenerative disc disease of the lumbar spine #4. Hypertension #5. Hyperlipidemia #6. Former smoker, patient carries a [id number] smoking history, currently in remission Plan: patient is currently on room air, his follow-up chest x-ray today shows complete resolution of the pulmonary edema, breathing much easier, his left rib pain is under good control, patient is without any specific complaints, we will cancel the CT of the chest, we will wear the patient for discharge home today with ou tpatient PET scan, and outpatient follow-up in the office with Dr. Mills for results of the CAT scan. I performed a history & physical examination of the patient and discussed their management with my nurse practitioner, Shamika Olsen. I reviewed the nurse practitioner's note and agree with the documented findings and plan of care. Lung sounds are positive for diminished breath sounds. The findings and the impression was discussed with the patient. I attest to the documentation by the nurse practitioner. Time with Patient: Less than 30
[2019-07-21] MEDS ORDERED: DOCUSATE 100 MG CAP PO PRN (17:10)
[2019-07-21] MEDS: FUROSEMIDE 40 MG TAB PO SCH (17:13)
--- NOTE | 2019-07-21 20:23 | ECHOF ---
Referral Reason:shortness of breath MEASUREMENTS -------- HEIGHT: 175.3 cm WEIGHT: 91.2 kg BP: 152/73 IVSd: 1.6 cm (0.6 - 1.1) LVIDd: 5.2 cm (3.9 - 5.3) LVPWd: 1.5 cm (0.6 - 1.1) IVSs: 1.8 cm LVIDs: 4.7 cm LVPWs: 2.0 cm LA Diam: 4.0 cm (2.7 - 3.8) RVIDd: 3.6 cm (< 3.3) LAESV Index (A-L): 30.07 ml/m Ao Diam: 3.5 cm (2.0 - 3.7) AV Cusp: 2.1 cm (1.5 - 2.6) EPSS: 2.1 cm MV E Lorenzo: 1.09 m/s MV DecT: 130 ms MV A Lorenzo: 1.13 m/s MV E/A Ratio: 0.97 AV maxP.08 mmHg AV meanP.60 mmHg AR PHT: 250 ms RAP: 5.00 mmHg RVSP: 45.31 mmHg MV EF SLOPE: 38.63 mm/s (70 - 150) MV EXCURSION: 16.66 mm (> 18.000) FINDINGS -------- Sinus rhythm. This was a technically adequate study. The left ventricular size is normal. There is moderate concentric left ventricular hypertrophy. O verall left ventricular systolic function is mild-moderately impaired with, an EF between 40 - 45 %. The right ventricle is mildly enlarged. LA is midly dilated 29-33ml/m2. The right atrium is normal in size. Interatrial and interventricular septum intact. There is mild aortic valve sclerosis. There is mild aortic regurgitation. Peak/mean gradient acro ss the Aortic Valve is 15.08mmHg / 7.60mmHg. The mitral valve leaflets are mildly thickened. Mild mitral annular calcification present. Mild-t o-moderate mitral regurgitation is present. Mild tricuspid regurgitation present. There is mild pulmonary hypertension. The right ventricular systolic pressure, as measured by Doppler, is 45.31mmHg. There is no pulmonic regurgitation present. The aortic root size is normal. Normal inferior vena cava with normal inspiratory collapse consistent with estimated right atrial pre ssure of 5 mmHg. There is no pericardial effusion. CONCLUSIONS -------- 1. Sinus rhythm. 2. This was a technically adequate study. 3. The left ventricular size is normal. 4. There is moderate concentric left ventricular hypertrophy. 5. Overall left ventricular systolic function is mild-moderately impaired with, an EF between 40 - 45 %. 6. The right ventricle is mildly enlarged. 7. LA is midly dilated 29-33ml/m2. 8. The right atrium is normal in size. 9. Interatrial and interventricular septum intact. 10. There is mild aortic valve sclerosis. 11. There is mild aortic regurgitation. 12. Peak/mean gradient across the Aortic Valve is 15.08mmHg / 7.60mmHg. 13. The mitral valve leaflets are mildly thickened. 14. Mild mitral annular calcification present. 15. [id number] mitral regurgitation is present. 16. Mild tricuspid regurgitation present. 17. There is mild pulmonary hypertension. 18. The right ventricular systolic pressure, as measured by Doppler, is 45.31mmHg. 19. There is no pulmonic regurgitation present. 20. The aortic root size is normal. 21. Normal inferior vena cava with normal inspiratory collapse consistent with estimated right atrial pressure of 5 mmHg. 22. There is no pericardial effusion. ACADEMIC AFFAIRS ASSISTANT: Ivana Renee RDCS
[2019-07-22 07:18] LABS: African American GFR (CKD) >90 (>60 ml/min/1.73 sqM); Anion Gap 9 mmol/L; Blood Urea Nitrogen 29 mg/dL (9-20); Calcium 7.8 mg/dL (8.4-10.2); Carbon Dioxide 29 mmol/L (22-30); Chloride 99 mmol/L (98-107); Glucose 107 mg/dL (74-99); Non-African American GFR(CKD) 78 (>60 ml/min/1.73 sqM); Potassium 4.1 mmol/L (3.5-5.1); Sodium 137 mmol/L (137-145)
[2019-07-22 08:16] VITALS: RESP 18
[2019-07-22] MEDS: ENOXAPARIN 40 MG/0.4 ML SYRINGE SQ SCH (08:27)
[2019-07-22] MEDS: ATORVASTATIN 20 MG TAB PO SCH (08:27)
[2019-07-22] MEDS: ATENOLOL 25 MG TAB PO SCH (08:27)
[2019-07-22] MEDS: PANTOPRAZOLE 40 MG/10 ML VIAL IV SCH (08:27)
[2019-07-22] MEDS: FUROSEMIDE 40 MG TAB PO SCH (08:27)
--- NOTE | 2019-07-22 10:36 | P.PN ---
Subjective This is an 89-year-old white male patient with past medical history of hypertension, hyperlipidemia, former smoker, patient follows at the [place] facility in [facility] services. she presented to the emergency department on 07/19/2019 per EMS for evaluation of severe left-sided rib pain and mid back pain after twisting motion at home. He states his pain is worse with movement and deep breathing. His had no fever or chills, no nausea vomiting or diarrhea, no cough, no recent shortness of breath, no chest pain, no abdominal pain, no headaches, no visual changes. Denies any trauma to the left chest. lumbar spine x-ray showed mild age indeterminate compression deformities of L1 and T12, and advanced multilevel degenerative disc disease of the lumbar spine and extensive atherosclerosis of the abdominal aorta. Chest x-ray with x-ray of the ribs showed right basilar patchy opacity likely related to atelectasis, no acute displaced rib fractures on the left. CT of the abdomen and pelvis showed noncalcified lingular mass suspicious for tumor measuring 1.[address] showed multilevel spondylotic changes, L4 through L5 bony spinal stenosis no fracture seen. lab work showed CBC within normal limits, proBNP was 1100, and troponin was less than 0.012. urinalysis showed trace ketones and blood. patient is daughter is at the bedside, and she stated patient was doing well other than having the left rib pain, however after he got back from the CT scan he developed acute respiratory distress, hypoxemia, his pulse ox was only 74 on room air, quite pale, with audible congestion and required BiPAP support. He was given Lasix, breathing treatments and nitroglycerin. Currently improved, currently on 2 L of oxygen and a pulse ox of 97%, he is on 1 L negative fluid balance, his chest x-ray showed pulmonary edema. Blood pressure 152/72 with a heart rate in the 70s, temperature 97.7. He was seen and examined this morning, the patient states overall his breathing is significantly improved. 07/22/2019 Patient was seen and examined this morning, he diuresed well through the night last night. Feels well, denies any shortness of breath. He was noted this morning to have a brief run of what appears to be in atrial tachycardia. We will discontinue the IV Lasix and start the patient on oral diuretics today, increase his dose of beta hany to 25 mg by mouth twice a day. His echocardiogram with Doppler study revealed an ejection fraction of 40-45% with mild to moderate mitral regurgitation noted. Objective - Vital Signs Vital signs: Vital Signs Temp 97.7 F 07/22/19 08:16 Pulse 60 07/22/19 08:16 Resp 18 07/22/19 08:16 BP 153/68 07/22/19 08:16 Pulse Ox 94 L 07/22/19 08:16 Intake & Output 07/21/19 07/22/19 07/22/19 18:59 06:59 18:59 Intake Total 720 480 Balance 720 480 Weight 90 kg Intake: Oral 720 480 Other: Voiding Method Urinal Urinal Toilet Urinal # Voids 3 1 2 - Exam GENERAL EXAM: Alert, very pleasant, 89-year-old white male in no acute distress at the time of my examination . HEAD: Normocephalic/atraumatic. EYES: Normal reaction of pupils, equal size. Conjunctiva pink, sclera white. NOSE: Clear with pink turbinates. THROAT: No erythema or exudates. NECK: No masses, no JVD, no thyroid enlargement, no adenopathy. CHEST: No chest wall deformity. Symmetrical expansion. chest wall tenderness in the left lower anterior chest wall LUNGS: Equal air entry with no crackles, wheeze, rhonchi or dullness. CVS: Regular rate and rhythm, normal S1 and S2, no gallops, no murmurs, no rubs ABDOMEN: Soft, nontender. No hepatosplenomegaly, normal bowel sounds, no guarding or rigidity. EXTREMITIES: No clubbing, no edema, no cyanosis, 2+ pulses and upper and lower extremities. MUSCULOSKELETAL: Muscle strength and tone normal. SPINE: No scoliosis or deformity SKIN: No rashes CENTRAL NERVOUS SYSTEM: Alert and oriented -3. No focal deficits, tone is normal in all 4 extremities. PSYCHIATRIC: Alert and oriented -3. Appropriate affect. Intact judgment and insight. - Labs CBC & Chem 7: 07/21/19 06:26 07/22/19 06:07 Labs: Abnormal Lab Results - Last 24 Hours (Table) 07/22/19 Range/Units 06:07 BUN 29 H (9-20) mg/dL Glucose 107 H (74-99) mg/dL Calcium 7.8 L (8.4-10.2) mg/dL Assessment and Plan Plan: Assessment and plan: #1. Acute hypoxic respiratory failure, with evidence of acute pulmonary edema, fluid overload, possibly related to acute exacerbation of CHF systolic, acute , possible reaction to IV contrast given for CT scan #2. left rib pain, CT of the of the abdomen and pelvis showed noncalcified nodule in the lingula left upper lobe measuring 1.8 cm #3. degenerative disc disease of the lumbar spine #4. Hypertension #5. Hyperlipidemia #6. Former smoker, patient carries a [id number] smoking history, currently in remission Plan: Echocardiogram with Doppler study revealed an ejection fraction of 40-45% with mild to moderate mitral regurgitation. We will increase the dose of beta hany to 25 mg by mouth twice a day today. Patient may be able to be discharged home, follow-up appointment will be made with Dr. Monroe in the office post discharge. DNP note has been reviewed, I agree with a documented findings and plan of care. Patient was seen and examined.
[2019-07-22 12:36] VITALS: BP 130/61; PULSE 51; TEMP 97.8
--- NOTE | 2019-07-22 13:43 | P.PN ---
Subjective Progress Note Date: 07/22/19 Principal diagnosis: left chest pain, shortness of breath 89-year-old white male patient with past medical history of hypertension, hyperlipidemia, former smoker, patient follows at the [place] facility in [facility] services. she presented to the emergency department on 07/19/2019 per EMS for evaluation of severe left-sided rib pain and mid back pain after twisting motion at home. He states his pain is worse with movement and deep breathing. His had no fever or chills, no nausea vomiting or diarrhea, no cough, no recent shortness of breath, no chest pain, no abdominal pain, no headaches, no visual changes. Denies any trauma to the left chest. lumbar spine x-ray showed mild age indeterminate compression deformities of L1 and T12, and advanced multilevel degenerative disc disease of the lumbar spine and extensive atherosclerosis of the abdominal aorta.chest x-ray with x-ray of the ribs showed right basilar patchy opacity likely related to atelectasis, no acute displaced rib fractures on the left. CT of the abdomen and pelvis showed noncalcified lingular mass suspicious for tumor measuring 1.[address] showed multilevel spondylotic changes, L4 through L5 bony spinal stenosis no fracture seen. lab work showed CBC within normal limits, proBNP was 1100, and troponin was less than 0.012. urinalysis showed trace ketones and blood. patient is daugh ter is at the bedside, and she stated patient was doing well other than having the left rib pain, however after he got back from the CT scan he developed acute respiratory distress, toxemia his pulse ox was only 74 on room air, quite pale, with audible congestion and required BiPAP support. he was given Lasix, breathing treatments and nitroglycerin. Currently improved, currently on 4 L of oxygen and a pulse ox of 96%, he is on 1 L negative fluid balance, his chest x- ray showed pulmonary edema. On 07/21/2019 patient seen in follow-up on selective care unit, he is awake and alert, in no acute distress, 2 L of oxygen his pulse ox was 97%, at the time of our evaluation patient was off the oxygen altogether. Breathing is comfortable, no shortness of breath, lung sounds are clear to auscultation, his had no fever or chills, today's chest x-ray shows near complete resolution of pulmonary v enous congestion and interstitial edema.patient is in -1.4 liters fluid balance over the last 24 hours, today's labs have been reviewed, white blood cell count is 14.4, 11 was 13.3, electrolytes were unremarkable with the exception of CO2 which is a 31 on today's labs, B1 is 34, and creatinine is 1.21. Troponins were less than 0.012, and 0.018, follow-up proBNP came back at 1210. echocardiogram h as been completed, results are pending. pain is controlled, patient is sitting up in the chair, he is having no acute complaints. He has been transitioned to oral Lasix of 40 mg twice daily. The patient's daughter was very concerned about another CT evaluation, this time of his chest with IV contrast in relation to this episode of possibility of ALLERGIC reaction to contrast. At this time we will clear the patient for discharge home today, and we'll recommend outpatient follow-up and outpatient PET scan. On 07/14/2019 patient seen in follow-up on selective care unit. He sitting up in the chair, in no acute distress, lung sounds are clear to auscultation, no complaints of shortness of breath. Remains pulse ox is 94%. Left-sided chest wall pain is improved, and is only present with some straining, otherwise patient seems to be quite comfortable. Yesterday's chest x-ray showed near complete resolution of the pulmonary edema. Patient has been diuresed, his been transitioned to oral diuretics. Echocardiogram was completed showing mild to moderate impairment of the LV function with an EF between 40-45%, mild aortic valve sclerosis, mild aortic regurgitation, [id number] mitral regurgitation and mild tricuspid regurgitation, with moderate pulmonary hypertension and right-sided pressures of 45.3 mmHg. Patient has had no acute events overnight. Today's labs have been reviewed, BUN is 29, creatinine is 0.84. Objective - Vital Signs Vital signs: Vital Signs Temp 97.8 F 07/22/19 12:34 Pulse 51 L 07/22/19 12:34 Resp 18 07/22/19 12:34 BP 130/61 07/22/19 12:34 Pulse Ox 96 07/22/19 12:34 Intake & Output 07/21/19 07/22/19 07/22/19 18:59 06:59 18:59 Intake Total 720 720 Balance 720 720 Weight 90 kg Intake: Oral 720 720 Other: Voiding Method Urinal Urinal Toilet Urinal # Voids 3 1 2 - Exam GENERAL EXAM: Alert, very pleasant, 89-year-old white male on 2 L of oxygen the pulse ox of 97%, comfortable in no apparent distress. HEAD: Normocephalic/atraumatic. EYES: Normal reaction of pupils, equal size. Conjunctiva pink, sclera white. NOSE: Clear with pink turbinates. THROAT: No erythema or exudates. NECK: No masses, no JVD, no thyroid enlargement, no adenopathy. CHEST: No chest wall deformity. Symmetrical expansion. chest wall tenderness in the left lower anterior chest wall LUNGS: Equal air entry with no crackles, wheeze, rhonchi or dullness. CVS: Regular rate and rhythm, normal S1 and S2, no gallops, no murmurs, no rubs ABDOMEN: Soft, nontender. No hepatosplenomegaly, normal bowel sounds, no guarding or rigidity. EXTREMITIES: No clubbing, no edema, no cyanosis, 2+ pulses and upper and lower extremities. MUSCULOSKELETAL: Muscle strength and tone normal. SPINE: No scoliosis or deformity SKIN: No rashes CENTRAL NERVOUS SYSTEM: Alert and oriented -3. No focal deficits, tone is normal in all 4 extremities. PSYCHIATRIC: Alert and oriented -3. Appropriate affect. Intact judgment and insight. - Labs CBC & Chem 7: 07/21/19 06:26 07/22/19 06:07 Labs: Abnormal Lab Results - Last 24 Hours (Table) 07/22/19 Range/Units 06:07 BUN 29 H (9-20) mg/dL Glucose 107 H (74-99) mg/dL Calcium 7.8 L (8.4-10.2) mg/dL Assessment and Plan Plan: Assessment: #1. Acute hypoxic respiratory failure, with possibility of acute pulmonary edema, fluid overload, possibly related to acute exacerbation of CHF with systolic dysfunction, EF of 40-45%, and possibility of vasovagal episode or possible reaction to IV contrast given for CT scan #2. left chest wall pain, left rib pain, CT of the of the abdomen and pelvis showed noncalcified nodule in the lingula left upper lobe measuring 1.8 cm, we'll need follow-up #3. degenerative disc disease of the lumbar spine #4. Hypertension #5. Hyperlipidemia #6. Former smoker, patient carries a [id number] smoking history, currently in remission Plan: Patient is doing well, on room air, yesterday chest x-ray showed near complete resolution of pulmonary edema, left-sided chest wall pain has significantly imp roved. he is being discharged home today. He will need outpatient follow-up with Dr. Mills in the office, and outpatient PET scan to follow up on the left upper lobe lung nodule. I performed a history & physical examination of the patient and discussed their management with my nurse practitioner, Shamika Olsen. I reviewed the nurse practitioner's note and agree with the documented findings and plan of care. Lung sounds are positive for diminished breath sounds. The findings and the impression was discussed with the patient. I attest to the documentation by the nurse practitioner. Time with Patient: Less than 30
--- NOTE | 2019-07-22 15:01 | P.PN ---
Subjective Progress Note Date: 07/21/19 89-year-old gentleman came in the for low back pain underwent a lumbar spinal x- ray followed by CT which showed which showed multilevel degenerative disc disease. After procedures patient went into respiratory failure found to have pulmonary edema with only mildly elevated BNP doesn't have any JVD and exam. Patient is being admitted for this reason patient also underwent a chest CAT scan as patient was complaining of pleuritic chest pain in the rib cage area because of pleuritic nature pulmonology is requesting a CT angios with contrast as patient ended up having pulmonary edema after diet patient will be prepped with the steroids before he goes for another contrast CT. Patient on the computed tomography scan of the chest showed a lingular mass and pulmonology is further evaluating this. Patient's BNP is only 1100. Post the computed tomography scan and postcontrast patient's pulse ox was 79% on room air and ended up being on BiPAP presently on 2 L of Parkinson's and saturating very well at this time patient received Lasix 1 with a 1 L negative fluid balance patient is receiving IV fluids those were discontinued. 07/21/2019 No overnight events patient is clinically doing well echo cardiac exam is still pending depending on that we can decide on the dose of Lasix with daily Lasix at home. Patient need to follow up as an outpatient for PET scan for evaluation of liver lesion patient chest pain is much better after anti-inflammatories and Tylenol. Rule out acute current syndrome chest pain is musculoskeletal Constitutional: Denied any fatigue denied any fever. Cardio vascular: denied any chest pain, palpitations Gastrointestinal denied any nausea vomiting Pulmonary: Denied any shortness of breath cough Neurologic denied any new focal deficits All inpatient medications were reviewed and appropriate changes in these medications as dictated in the interval history and assessment and plan. Objective - Vital Signs Vital signs: Vital Signs Temp 97.8 F 07/22/19 12:34 Pulse 51 L 07/22/19 12:34 Resp 18 07/22/19 12:34 BP 130/61 07/22/19 12:34 Pulse Ox 96 07/22/19 12:34 Intake & Output 07/21/19 07/22/19 07/22/19 18:59 06:59 18:59 Intake Total 720 720 Balance 720 720 Weight 90 kg Intake: Oral 720 720 Other: Voiding Method Urinal Urinal Toilet Urinal # Voids 3 1 2 - Exam PHYSICAL EXAMINATION: GENERAL: The patient is alert and oriented x3, not in any acute distress. Obese HEENT: Pupils are round and equally reacting to light. EOMI. No scleral icterus. No conjunctival pallor. Normocephalic, atraumatic. No pharyngeal erythema. No thyromegaly. CARDIOVASCULAR: S1 and S2 present. No murmurs, rubs, or gallops. PULMONARY: Chest is clear to auscultation, no wheezing or crackles. ABDOMEN: Soft, nontender, nondistended, normoactive bowel sounds. No palpable organomegaly. MUSCULOSKELETAL: No joint swelling or deformity. EXTREMITIES: No cyanosis, clubbing, or pedal edema. NEUROLOGICAL: Gross neurological examination did not reveal any focal deficits. SKIN: No rashes. - Labs CBC & Chem 7: 07/21/19 06:26 07/22/19 06:07 Labs: Abnormal Lab Results - Last 24 Hours (Table) 07/22/19 Range/Units 06:07 BUN 29 H (9-20) mg/dL Glucose 107 H (74-99) mg/dL Calcium 7.8 L (8.4-10.2) mg/dL Assessment and Plan Plan: Acute hypoxic respiratory failure possibly of pulmonary edema CHF cannot be ruled out patient will undergo echocardiogram. Pulmonary edema can be a reaction to IV contrast. 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
--- NOTE | 2019-07-22 15:05 | P.DS ---
Providers Date of admission: 07/19/19 18:24 Attending physician: Mary Jane Hines Consults: 07/19/19 19:50 Consult Physician Stat Consulting Provider: Heidi Webster Consult Reason/Comments: lingula mass, acute pulmonary edema Do you want consulting provider notified?: Yes 07/20/19 14:21 Consult Physician Stat Consulting Provider: Duarte Jung Consult Reason/Comments: respiratory distress/chf Do you want consulting provider notified?: Yes Primary care physician: [facility] Hospital Course: 89-year-old gentleman came in the for low back pain underwent a lumbar spinal x- ray followed by CT which showed which showed multilevel degenerative disc disease. After procedures patient went into respiratory failure found to have pulmonary edema with only mildly elevated BNP doesn't have any JVD and exam. Patient is being admitted for this reason patient also underwent a chest CAT scan as patient was complaining of pleuritic chest pain in the rib cage area because of pleuritic nature pulmonology is requesting a CT angios with contrast as patient ended up having pulmonary edema after diet patient will be prepped with the steroids before he goes for another contrast CT. Patient on the computed tomography scan of the chest showed a lingular mass and pulmonology is further evaluating this. Patient's BNP is only 1100. Post the computed tomography scan and postcontrast patient's pulse ox was 79% on room air and ended up being on BiPAP presently on 2 L of Parkinson's and saturating very well at this time patient received Lasix 1 with a 1 L negative fluid balance patient is receiving IV fluids those were discontinued. 07/21/2019 No overnight events patient is clinically doing well echo cardiac exam is still pending depending on that we can decide on the dose of Lasix with daily Lasix at home. Patient need to follow up as an outpatient for PET scan for evaluation of liver lesion patient chest pain is much better after anti-inflammatories and Tylenol. Rule out acute current syndrome chest pain is musculoskeletal 07/14/2019 Patient has decreased EF of around 40-45% appears to have chronic systolic dysfunction patient will be started on 5 mg of lisinopril patient had episode of nonsustained VT because of which beta hany dose was increased and patient is being discharged on 40 oral twice a day of Lasix patient's potassium is around 4 because of which I'm not giving him potassium supplementation. Respiratory basic metabolic profile will be obtained in about 3 days and patient will follow up closely with PCP and cardiology as an outpatient along with pulmonology for a PET scan and further evaluation of lingular mass patient chest pain significantly improved and is musculoskeletal for which patient will be discharged on tramadol as an anti-inflammatory medication. PHYSICAL EXAMINATION: GENERAL: The patient is alert and oriented x3, not in any acute distress. Well developed, well nourished. HEENT: Pupils are round and equally reacting to light. EOMI. No scleral icterus. No conjunctival pallor. Normocephalic, atraumatic. No pharyngeal erythema. No thyromegaly. CARDIOVASCULAR: S1 and S2 present. No murmurs, rubs, or gallops. PULMONARY: Chest is clear to auscultation, no wheezing or crackles. ABDOMEN: Soft, nontender, nondistended, normoactive bowel sounds. No palpable organomegaly. MUSCULOSKELETAL: No joint swelling or deformity. EXTREMITIES: No cyanosis, clubbing, or pedal edema. NEUROLOGICAL: Gross neurological examination did not reveal any focal deficits. SKIN: No rashes. -Acute hypoxic respiratory failure: Resolved which is secondary to congestive heart failure chronic systolic dysfunction with acute exacerbation -Lingular mass for which patient will follow-up with pulmonary as an outpatient and will need a PET scan -Just been musculoskeletal ruled out acute analysis syndromes symptoms Hypertension -hyperlipidemia -Wasting Patient Condition at Discharge: Stable Plan - Discharge Summary Discharge Rx Participant: No New Discharge Prescriptions: New Furosemide [Lasix] 40 mg PO BID@0900,1600 #60 tab Atenolol [Tenormin] 25 mg PO BID tab Lisinopril [Zestril] 5 mg PO DAILY #30 tab traMADol HCL [Ultram] 50 mg PO Q4HR PRN 3 Days #18 tab PRN Reason: Pain Continue Simvastatin 40 mg PO DAILY Discontinued Hydrochlorothiazide 12.5 mg PO DAILY Atenolol 25 mg PO DAILY Discharge Medication List Simvastatin 40 mg PO DAILY 07/19/19 [History] Atenolol [Tenormin] 25 mg PO BID tab 07/22/19 [Rx] Furosemide [Lasix] 40 mg PO BID@0900,1600 #60 tab 07/22/19 [Rx] Lisinopril [Zestril] 5 mg PO DAILY #30 tab 07/22/19 [Rx] traMADol HCL [Ultram] 50 mg PO Q4HR PRN 3 Days #18 tab 07/22/19 [Rx] Follow up Appointment(s)/Referral(s): Duarte Jung MD [STAFF PHYSICIAN] - 07/30/19 2:45 pm [place] Mills DO [Doctor of Osteopathic Medicine] - 08/02/19 1:15 pm [facility] [Primary Care Provider] - 07/29/19 3:00 pm (OVER THE PHONE-Dr. Saxena will call you AT HOME-THIS IS A PHONE VISIT) Ambulatory/Diagnostic Orders: Basic Metabolic Panel [LAB.AMB] Time Frame: 3 Days, Location: None Selected Patient Instructions/Handouts: Pulmonary Edema (DC) Activity/Diet/Wound Care/Special Instructions: Activity as tolerated. Diet as tolerated. Discharge Disposition: HOME SELF-CARE
[2019-07-22] MEDS ORDERED: ATENOLOL 25 MG TAB PO SCH (21:00)
== END 2019-07-22 13:37 | disposition home or self-care (01) | DRG 291 ==
LOC: EC 14:39 → 3SCARD 18:24
PROVIDERS: ADMIT Hospitalist; ATTEND Hospitalist
PROC: 5A09357 Assistance with Respiratory Ventilation, Less than 24 Consecutive Hours, Continuous Positive Airway Pressure (ICD-10-PCS; principal; 2019-07-19)
DX: I11.0 Hypertensive heart disease with heart failure (principal); J96.01 Acute respiratory failure with hypoxia; J98.11 Atelectasis; I50.23 Acute on chronic systolic (congestive) heart failure; E78.5 Hyperlipidemia, unspecified; G89.29 Other chronic pain; I08.3 Combined rheumatic disorders of mitral, aortic and tricuspid valves; E66.9 Obesity, unspecified; Z68.29 Body mass index [BMI] 29.0-29.9, adult; I27.20 Pulmonary hypertension, unspecified; M51.36 Other intervertebral disc degeneration, lumbar region; Z79.899 Other long term (current) drug therapy; Z87.891 Personal history of nicotine dependence; Z85.828 Personal history of other malignant neoplasm of skin; R91.1 Solitary pulmonary nodule; Z91.041 Radiographic dye allergy status; Z11.59 Encounter for screening for other viral diseases
CPT/HCPCS: 36415; 71045; 72100; 72132; 74177; 80048; 81001; 83735; 83880; 84484; 85025; 85027; 85610; 85730; 87635; 93005; 93306; 94660; 96361; 96374; 96375; 96376; 99285

== ENCOUNTER → 2019-07-26 | Outpatient (CLI) | payer MEDICARE, BC ==
[2019-07-26 17:21] LABS: African American GFR (CKD) 69.1 (60.0-200.0); Anion Gap 7.9 mmol/L (4.00-12.00); Calcium 9.1 mg/dL (8.7-10.3); Carbon Dioxide 30.1 mmol/L (21.6-31.8); Non-African American GFR(CKD) 59.6 (60.0-200.0); Potassium 4.6 mmol/L (3.5-5.5)
== END | disposition home or self-care (01) ==
LOC: LABWHC1 08:46
PROVIDERS: ATTEND Internal Medicine
DX: I11.0 Hypertensive heart disease with heart failure (principal); I50.9 Heart failure, unspecified
CPT/HCPCS: 36415; 80048

== ENCOUNTER 2019-09-17 14:19 | Emergency (ER) | payer MEDICARE, BC ==
[2019-09-17 15:04] VITALS: RESP 16; TEMP 98.1
[2019-09-17] MEDS ORDERED: SODIUM CHLORIDE 0.9% 1,000 ML IV STA (15:40)
--- NOTE | 2019-09-17 15:52 | ED ---
Nausea/Vomiting/Diarrhea HPI <Forest Mota - Last Filed: 09/17/19 19:33> - General Source: patient Mode of arrival: wheelchair Limitations: no limitations <Gera Chang - Last Filed: 09/17/19 23:41> - General Chief complaint: Nausea/Vomiting/Diarrhea Stated complaint: Watery Stool Time Seen by Provider: 09/17/19 15:27 - History of Present Illness Initial comments: Patient is an 89-year-old male presenting to emergency Department with chief complaint of diarrhea. Patient states symptoms began about 5 days ago. Patient states initially it was semi-formed stool which has since progressed into watery diarrhea. States the night prior to onset of symptoms, he had take out food from a restaurant which could have potentially caused the symptoms. Patient denies increased urgency frequency or dysuria. Denies any testicular tenderness or swelling. Denies any penile discharge. Denies hematuria, hematochezia or melena. Denies any abdominal pain back pain nausea vomiting chest pain or shortness of breath. (Gera Chang) - Related Data Home Medications Medication Instructions Recorded Confirmed Simvastatin 40 mg PO DAILY 07/19/19 09/17/19 Aspirin [[place] Aspirin EC] 81 mg PO DAILY 09/17/19 09/17/19 Furosemide [Lasix] 40 mg PO DAILY 09/17/19 09/17/19 Hydrochlorothiazide 12.5 mg PO DAILY 09/17/19 09/17/19 [hydroCHLOROthiazide] Omeprazole Magnesium [PriLOSEC OTC] 20 mg PO DAILY 09/17/19 09/17/19 atenoloL [Tenormin] 25 mg PO DAILY 09/17/19 09/17/19 Previous Rx's Medication Instructions Recorded lisinopriL [Zestril] 5 mg PO DAILY #30 tab 07/22/19 Allergies Allergy/AdvReac Type Severity Reaction Status Date / Time Iodinated Contrast Media AdvReac Severe shortness Verified 09/17/19 16:57 of breath Review of Systems ROS Other: All systems not noted in ROS Statement are negative. <Forest Mota - Last Filed: 09/17/19 19:33> ROS Other: All systems not noted in ROS Statement are negative. <Gera Chang - Last Filed: 09/17/19 23:41> ROS Statement: Those systems with pertinent positive or pertinent negative responses have been documented in the HPI. Past Medical History Past Medical History: Cancer, Heart Failure, Hyperlipidemia, Hypertension Additional Past Medical History / Comment(s): irregular heartbeat, skin CA History of Any Multi-Drug Resistant Organisms: None Reported Past Surgical History: No Surgical Hx Reported Past Anesthesia/Blood Transfusion Reactions: No Reported Reaction Past Psychological History: No Psychological Hx Reported Smoking Status: Former smoker Past Alcohol Use History: None Reported Past Drug Use History: None Reported <Gera Chang - Last Filed: 09/17/19 23:41> General Exam Limitations: no limitations General appearance: alert, in no apparent distress Head exam: Present: atraumatic, normocephalic, normal inspection Eye exam: Present: normal appearance, PERRL, EOMI Pupils: Present: normal accommodation ENT exam: Present: normal exam, normal oropharynx, mucous membranes dry, TM's normal bilaterally, normal external ear exam Neck exam: Present: normal inspection, full ROM. Absent: tenderness Respiratory exam: Present: normal lung sounds bilaterally. Absent: respiratory distress, wheezes, rales Cardiovascular Exam: Present: regular rate, normal rhythm, normal heart sounds GI/Abdominal exam: Present: soft, normal bowel sounds. Absent: distended, tenderness, guarding, rebound, pulsatile mass, hernia Extremities exam: Present: normal inspection, full ROM, normal capillary refill. Absent: tenderness Back exam: Present: normal inspection, full ROM. Absent: tenderness, CVA tenderness (R), CVA tenderness (L) Neurological exam: Present: alert, oriented X3, normal gait Psychiatric exam: Present: normal affect, normal mood Skin exam: Present: warm, dry, intact, normal color <Gera Chang - Last Filed: 09/17/19 23:41> Course Vital Signs 09/17/19 09/17/19 14:59 19:41 Temperature 98.1 F 98.1 F Pulse Rate 80 83 Respiratory 16 16 Rate Blood Pressure 132/65 135/80 O2 Sat by Pulse 95 98 Oximetry Medical Decision Making - Lab Data Result diagrams: 09/17/19 16:15 09/17/19 16:15 <Forest Mota - Last Filed: 09/17/19 19:33> - Lab Data Result diagrams: 09/17/19 16:15 09/17/19 16:15 <BernardoMatao - Last Filed: 09/17/19 23:41> - Medical Decision Making 89-year-old male with 5 days of diarrhea. No abdominal pain. No fever. No blood in the diarrhea. Patient is well-appearing with stable vitals. Workup is unremarkable, CT negative for acute intra-abdominal process. He does have a lung nodule which the patient is informed of. Laboratory testing is within normal limits. Stool studies have been obtained these results are pending include C. difficile toxin. Patient will be discharged home with close outpatient follow-up and return parameters. I did personally examined this patient with the physician aquatics assistant department head. (Forest Mota) - Lab Data Lab Results 09/17/19 09/17/19 09/17/19 Range/Units 16:15 16:15 16:15 WBC 7.9 (3.8-10.6) k/uL RBC 4.23 L (4.30-5.90) m/uL Hgb 14.0 (13.0-17.5) gm/dL Hct 40.5 (39.0-53.0) % MCV 95.9 (80.0-100.0) fL MCH 33.1 (25.0-35.0) pg MCHC 34.5 (31.0-37.0) g/dL RDW 13.4 (11.5-15.5) % Plt Count 255 (150-450) k/uL Neutrophils % 71 % Lymphocytes % 17 % Monocytes % 7 % Eosinophils % 3 % Basophils % 0 % Neutrophils # 5.6 (1.3-7.7) k/uL Lymphocytes # 1.3 (1.0-4.8) k/uL Monocytes # 0.6 (0-1.0) k/uL Eosinophils # 0.2 (0-0.7) k/uL Basophils # 0.0 (0-0.2) k/uL Sodium 138 (137-145) mmol/L Potassium 4.0 (3.5-5.1) mmol/L Chloride 103 (98-107) mmol/L Carbon Dioxide 25 (22-30) mmol/L Anion Gap 10 mmol/L BUN 15 (9-20) mg/dL Creatinine 0.96 (0.66-1.25) mg/dL Est GFR (CKD-EPI)AfAm 82 (>60 ml/min/1.73 sqM) Est GFR (CKD-EPI)NonAf 71 (>60 ml/min/1.73 sqM) Glucose 102 H (74-99) mg/dL Calcium 9.2 (8.4-10.2) mg/dL Total Bilirubin 1.6 H (0.2-1.3) mg/dL AST 25 (17-59) U/L ALT 13 (4-49) U/L Alkaline Phosphatase 71 (38-126) U/L Total Protein 6.8 (6.3-8.2) g/dL Albumin 4.4 (3.5-5.0) g/dL Lipase 16 L (23-300) U/L Urine Color Yellow Urine Appearance Clear (Clear) Urine pH 5.5 (5.0-8.0) Ur Specific [place] 1.012 (1.001-1.035) Urine Protein Negative (Negative) Urine Glucose (UA) Negative (Negative) Urine Ketones Negative (Negative) Urine Blood Negative (Negative) Urine Nitrite Negative (Negative) Urine Bilirubin Negative (Negative) Urine Urobilinogen <2.0 (<2.0) mg/dL Ur Leukocyte Esterase Negative (Negative) - EKG Data EKG Comments: Sinus rhythm with occasional PVC. Ventricular rate 81, CO 166, QRS 156, QTC 508. (Gera Chang) Disposition <Forest Mota - Last Filed: 09/17/19 19:33> Is patient prescribed a controlled substance at d/c from ED?: No Time of Disposition: 19:33 <Gera Chang - Last Filed: 09/17/19 23:41> Clinical Impression: Watery diarrhea Disposition: HOME SELF-CARE Condition: Stable Instructions (If sedation given, give patient instructions): C Diff (Clostridium Difficile) Infection (ED), Acute Diarrhea (ED) Additional Instructions: Eat some bananas, rice, applesauce and toast diet. Return to emergency department if symptoms worsen. Drink lots of fluids. Referrals: [facility],Clinic [Primary Care Provider] - 1-2 days
[2019-09-17 16:33] LABS: Basophils % (A) 0 %; Eosinophils # (A) 0.2 k/uL (0-0.7); Eosinophils % (A) 3 %; HCT 40.5 % (39.0-53.0); Lymphocytes # (A) 1.3 k/uL (1.0-4.8); Lymphocytes % (A) 17 %; MCH 33.1 pg (25.0-35.0); MCHC 34.5 g/dL (31.0-37.0); MCV 95.9 fL (80.0-100.0); Mean Platelet Volume 8.3; Monocytes # (A) 0.6 k/uL (0-1.0); Monocytes % (A) 7 %; Neutrophils # (A) 5.6 k/uL (1.3-7.7); Neutrophils % (A) 71 %; Platelet Count 255 k/uL (150-450); RBC 4.23 m/uL (4.30-5.90); RDW 13.4 % (11.5-15.5); WBC 7.9 k/uL (3.8-10.6)
[2019-09-17 16:37] LABS: Appearance,Urine Clear (Clear); Bilirubin,Urine Negative (Negative); Blood,Urine Negative (Negative); Color,Urine Yellow; Glucose,Urine (UA) Negative (Negative); Ketones,Urine Negative (Negative); Leukocyte Esterase,Urine Negative (Negative); Nitrite,Urine Negative (Negative); PH, Urine 5.5 (5.0-8.0); Protein,Urine Negative (Negative); Specific Gravity,Urine 1.012 (1.001-1.035); Urobilinogen,Urine <2.0 mg/dL (<2.0)
[2019-09-17 16:50] LABS: Albumin 4.4 g/dL (3.5-5.0); Calcium 9.2 mg/dL (8.4-10.2); Total Bilirubin 1.6 mg/dL (0.2-1.3); Total Protein 6.8 g/dL (6.3-8.2)
--- NOTE | 2019-09-17 18:26 | CT ---
EXAMINATION TYPE: CT abdomen pelvis wo con DATE OF EXAM: 09/17/2019 COMPARISON: HISTORY: Profuse diarrhea since Friday CT DLP: 840 mGycm Automated exposure control for dose reduction was used. Exam performed without contrast. There is patchy interstitial infiltrates at the lung bases. There is patchy atelectasis. There is 1.5 cm nodular infiltrate in the lingula left upper lobe close to the pleura. This measures 11 mm on pre vious exam. There is no pericardial effusion. There is small hiatal hernia. There is no pleural effusion. Liver spleen pancreas gallbladder appear normal. Bile ducts are not dilated. There is no adrenal mass. There are multiple bilateral renal cortical cysts. The largest is on the po sterior right kidney and measures 5 cm. There is no hydronephrosis. Ureters are not dilated. There is no retroperitoneal adenopathy. Bladder distends smoothly. There is prostatic calcification. There is no inguinal hernia. There is no free fluid in the pelvis. There is no mesenteric edema. There is no ascites or free air. There is no sign of a bowel obstructio n. Appendix is not definitely seen. There is no sign of thickened appendix. There is multilevel spondylotic changes in the lumbar spine with disc space narrowing and spur format ion. There is no compression fracture. Abdominal aorta is atheromatous. The bony pelvis appears intac t. IMPRESSION: No acute abnormality within the abdomen pelvis. Renal cortical cysts. Atherosclerotic vascular diseas e. No interstitial infiltrates and atelectasis at the lung bases unchanged. There is 1.5 cm nodular noncalcified density in the lingula left upper lobe suspicious for tumor that is increased compared to recent exam.
[2019-09-17 19:42] VITALS: BP 135/80; PULSE 83
== END 2019-09-17 19:43 | disposition home or self-care (01) ==
LOC: EC 14:19
DX: R19.7 Diarrhea, unspecified (principal); R91.8 Other nonspecific abnormal finding of lung field; I11.0 Hypertensive heart disease with heart failure; I50.9 Heart failure, unspecified; E78.5 Hyperlipidemia, unspecified; Z85.828 Personal history of other malignant neoplasm of skin; Z79.899 Other long term (current) drug therapy; Z79.82 Long term (current) use of aspirin; Z87.891 Personal history of nicotine dependence; Z91.041 Radiographic dye allergy status
CPT/HCPCS: 36415; 74176; 80053; 81003; 83690; 85025; 93005; 96360; 99284

== ENCOUNTER 2020-01-28 21:37 | Inpatient (IN) | payer MEDICARE, BC ==
--- NOTE | 2020-01-28 22:39 | ED ---
SOB HPI - General Chief Complaint: Shortness of Breath Stated Complaint: SOB Time Seen by Provider: 01/28/20 22:22 Source: patient, RN notes reviewed, old records reviewed Mode of arrival: wheelchair Limitations: no limitations - History of Present Illness Initial Comments: This is a 89-year-old male presents today for shortness of breath. Patient is d enying any fevers no chest pain. Patient did have recent hospital admission where he also this event with severe distress patient does have again history of CHF and COPD. Patient has no fevers at home MD Complaint: shortness of breath, anxiety -: hour(s) Severity: severe Severity scale (1-10): 9 Consistency: constant Improves With: nothing, oxygen Worsens With: exertion, movement Known History Of: congestive heart failure Context: recent illness Associated Symptoms: cough Treatments Prior to Arrival: none - Related Data Home Medications Medication Instructions Recorded Confirmed Simvastatin 40 mg PO DAILY 07/19/19 01/29/20 Aspirin [[place] Aspirin EC] 81 mg PO DAILY 09/17/19 01/29/20 Furosemide [Lasix] 40 mg PO DAILY 09/17/19 01/29/20 Albuterol Inhaler [Ventolin Hfa 1 - 2 puff INHALATION RT-Q6H PRN 01/29/20 01/29/20 Inhaler] Albuterol Nebulized [Ventolin 3 ml INHALATION RT-Q6H PRN 01/29/20 01/29/20 Nebulized] Multivitamin with Iron 1 tab PO DAILY 01/29/20 01/29/20 [Multivitamins with Iron] traMADol HCL [Ultram] 50 mg PO BID PRN 01/29/20 01/29/20 Allergies Allergy/AdvReac Type Severity Reaction Status Date / Time Iodinated Contrast Media AdvReac Severe shortness Verified 01/29/20 00:19 of breath Review of Systems ROS Statement: Those systems with pertinent positive or pertinent negative responses have been documented in the HPI. ROS Other: All systems not noted in ROS Statement are negative. Past Medical History Past Medical History: Cancer, Heart Failure, Hyperlipidemia, Hypertension Additional Past Medical History / Comment(s): irregular heartbeat, skin CA History of Any Multi-Drug Resistant Organisms: None Reported Past Surgical History: No Surgical Hx Reported Past Anesthesia/Blood Transfusion Reactions: No Reported Reaction Past Psychological History: No Psychological Hx Reported Smoking Status: Former smoker Past Alcohol Use History: None Reported Past Drug Use History: None Reported General Exam Limitations: no limitations General appearance: alert, anxious, in distress Head exam: Present: atraumatic, normocephalic, normal inspection Eye exam: Present: normal appearance, PERRL, EOMI. Absent: scleral icterus, conjunctival injection, periorbital swelling ENT exam: Present: normal exam, mucous membranes moist Neck exam: Present: normal inspection. Absent: tenderness, meningismus, lymphadenopathy Respiratory exam: Present: normal lung sounds bilaterally. Absent: respiratory distress, wheezes, rales, rhonchi, stridor Cardiovascular Exam: Present: tachycardia, irregular rhythm, normal heart sounds. Absent: systolic murmur, diastolic murmur, rubs, gallop, clicks GI/Abdominal exam: Present: soft, normal bowel sounds. Absent: distended, tenderness, guarding, rebound, rigid Extremities exam: Present: normal inspection, full ROM, normal capillary refill. Absent: tenderness, pedal edema, joint swelling, calf tenderness Back exam: Present: normal inspection Neurological exam: Present: alert, oriented X3, CN II-XII intact Psychiatric exam: Present: normal affect, normal mood Skin exam: Present: warm, dry, intact, normal color. Absent: rash Course Vital Signs 01/28/20 01/28/20 01/28/20 21:38 23:24 23:25 Temperature 97.4 F L Pulse Rate 94 97 98 Respiratory 18 20 Rate Blood Pressure 128/76 113/92 O2 Sat by Pulse 94 L 98 Oximetry 01/28/20 01/29/20 01/29/20 23:53 00:00 01:00 Temperature Pulse Rate 97 70 108 H Respiratory 20 22 Rate Blood Pressure 143/79 125/81 O2 Sat by Pulse 97 98 Oximetry 01/29/20 01/29/20 01/29/20 02:00 02:45 03:00 Temperature Pulse Rate 103 H 133 H 134 H Respiratory 20 38 H 34 H Rate Blood Pressure 118/73 93/76 O2 Sat by Pulse 97 89 L 98 Oximetry 01/29/20 01/29/20 01/29/20 03:23 03:50 04:00 Temperature Pulse Rate 122 H 97 92 Respiratory 14 24 14 Rate Blood Pressure 123/76 96/62 96/53 O2 Sat by Pulse 97 98 97 Oximetry 01/29/20 01/29/2001/28/20 05:00 06:00 07:00 Temperature 98.8 F Pulse Rate 84 78 87 Respiratory 20 20 14 Rate Blood Pressure 103/80 101/51 119/65 O2 Sat by Pulse 97 97 97 Oximetry 01/29/20 01/29/20 01/29/20 07:44 08:13 08:20 Temperature Pulse Rate 96 89 97 Respiratory 22 Rate Blood Pressure 128/63 O2 Sat by Pulse 99 Oximetry 01/29/20 01/29/20 01/29/20 08:27 09:49 11:39 Temperature Pulse Rate 87 87 88 Respiratory 20 18 Rate Blood Pressure 100/67 111/66 O2 Sat by Pulse 99 99 Oximetry 01/29/20 01/29/20 01/29/20 11:45 12:13 14:51 Temperature Pulse Rate 92 84 92 Respiratory 16 Rate Blood Pressure 113/60 O2 Sat by Pulse 99 Oximetry 01/29/20 01/29/20 01/29/20 15:00 15:04 17:28 Temperature Pulse Rate 90 90 115 H Respiratory 18 20 Rate Blood Pressure 120/60 120/67 O2 Sat by Pulse 99 98 Oximetry 01/29/20 01/29/20 01/29/20 18:35 19:08 19:15 Temperature Pulse Rate 105 H 135 H 117 H Respiratory 18 18 Rate Blood Pressure 125/64 135/71 O2 Sat by Pulse 97 96 97 Oximetry 01/29/20 01/29/20 19:26 19:59 Temperature Pulse Rate 122 H 104 H Respiratory 18 Rate Blood Pressure 108/57 O2 Sat by Pulse 96 Oximetry - Reevaluation(s) Reevaluation #1: Medical records reviewed No real significant improvement here in the emergency department Patient informed results and questions answered, family at bedside also informed Patient has episode of decompensation after computed tomography scan bedside care is provided with patient has severe distress hypoxic mottled and diaphoretic Patient is placed on BiPAP with significant improvement Medical Decision Making - Medical Decision Making 89 male who was admitted for atrial fibrillation with RVR shortness of breath patient was laid down to have computed tomography scan went to severe us for a stress a pulmonary edema, patient placed on BiPAP will be admitted for continued evaluation and treatment, also rule out pneumonia rule out coronavirus - Lab Data Result diagrams: 01/30/20 02:43 01/28/20 22:58 Lab Results 01/28/20 01/28/20 01/28/20 Range/Units 22:58 22:58 22:58 WBC 12.1 H (3.8-10.6) k/uL RBC 4.05 L (4.30-5.90) m/uL Hgb 12.0 L (13.0-17.5) gm/dL Hct 36.6 L (39.0-53.0) % MCV 90.5 (80.0-100.0) fL MCH 29.7 (25.0-35.0) pg MCHC 32.8 (31.0-37.0) g/dL RDW 14.4 (11.5-15.5) % Plt Count 425 (150-450) k/uL MPV 8.2 Neutrophils % 81 % Lymphocytes % 10 % Monocytes % 6 % Eosinophils % 1 % Basophils % 1 % Neutrophils # 9.8 H (1.3-7.7) k/uL Lymphocytes # 1.2 (1.0-4.8) k/uL Monocytes # 0.8 (0-1.0) k/uL Eosinophils # 0.1 (0-0.7) k/uL Basophils # 0.1 (0-0.2) k/uL PT 11.6 (9.0-12.0) sec INR 1.1 (<1.2) APTT 25.3 (22.0-30.0) sec D-Dimer 9.90 H (<0.60) mg/L FEU Sodium 132 L (137-145) mmol/L Potassium 4.6 (3.5-5.1) mmol/L Chloride 99 (98-107) mmol/L Carbon Dioxide 24 (22-30) mmol/L Anion Gap 9 mmol/L BUN 16 (9-20) mg/dL Creatinine 0.85 (0.66-1.25) mg/dL Est GFR (CKD-EPI)AfAm 89 (>60 ml/min/1.73 sqM) Est GFR (CKD-EPI)NonAf 77 (>60 ml/min/1.73 sqM) Glucose 139 H (74-99) mg/dL Calcium 8.8 (8.4-10.2) mg/dL Magnesium 2.0 (1.6-2.3) mg/dL Total Bilirubin 1.0 (0.2-1.3) mg/dL AST 28 (17-59) U/L ALT 20 (4-49) U/L Alkaline Phosphatase 101 (38-126) U/L Lactate Dehydrogenase 531 (313-618) U/L Troponin I (0.000-0.034) ng/mL C-Reactive Protein 150.7 H (<10.0) mg/L NT-Pro-B Natriuret Pep pg/mL Total Protein 6.3 (6.3-8.2) g/dL Albumin 3.4 L (3.5-5.0) g/dL 01/28/20 01/28/20 Range/Units 22:58 22:58 WBC (3.8-10.6) k/uL RBC (4.30-5.90) m/uL Hgb (13.0-17.5) gm/dL Hct (39.0-53.0) % MCV (80.0-100.0) fL MCH (25.0-35.0) pg MCHC (31.0-37.0) g/dL RDW (11.5-15.5) % Plt Count (150-450) k/uL MPV Neutrophils % % Lymphocytes % % Monocytes % % Eosinophils % % Basophils % % Neutrophils # (1.3-7.7) k/uL Lymphocytes # (1.0-4.8) k/uL Monocytes # (0-1.0) k/uL Eosinophils # (0-0.7) k/uL Basophils # (0-0.2) k/uL PT (9.0-12.0) sec INR (<1.2) APTT (22.0-30.0) sec D-Dimer (<0.60) mg/L FEU Sodium (137-145) mmol/L Potassium (3.5-5.1) mmol/L Chloride (98-107) mmol/L Carbon Dioxide (22-30) mmol/L Anion Gap mmol/L BUN (9-20) mg/dL Creatinine (0.66-1.25) mg/dL Est GFR (CKD-EPI)AfAm (>60 ml/min/1.73 sqM) Est GFR (CKD-EPI)NonAf (>60 ml/min/1.73 sqM) Glucose (74-99) mg/dL Calcium (8.4-10.2) mg/dL Magnesium (1.6-2.3) mg/dL Total Bilirubin (0.2-1.3) mg/dL AST (17-59) U/L ALT (4-49) U/L Alkaline Phosphatase (38-126) U/L Lactate Dehydrogenase (313-618) U/L Troponin I 0.039 H* (0.000-0.034) ng/mL C-Reactive Protein (<10.0) mg/L NT-Pro-B Natriuret Pep 7100 pg/mL Total Protein (6.3-8.2) g/dL Albumin (3.5-5.0) g/dL - EKG Data -: EKG Interpreted by Me (EKG is rate of 114 QRS 142 QTC 521) - Radiology Data Radiology results: report reviewed (Chest showing pneumonia with likely mass, CT chest is concerning for coronavirus with effusions), image reviewed Critical Care Time Critical Care Time: Yes Total Critical Care Time: 31 Disposition Clinical Impression: Acute pulmonary edema, Acute respiratory distress syndrome in adult, Congestive heart failure, Lung mass, Pneumonia, Atrial fibrillation with RVR Narrative: ro PE v COVID Disposition: ADMITTED IP TO THIS HOSP Condition: Serious Is patient prescribed a controlled substance at d/c from ED?: No
[2020-01-28] MEDS ORDERED: IPRATROPIUM-ALBUTEROL 3 ML NEB INHALATION STA (22:53)
[2020-01-28] MEDS ORDERED: methylPREDNISolone SOD SUCCI 125 MG/2 ML VIAL IV STA (22:53)
[2020-01-28 23:07] LABS: Basophils # (A) 0.1 k/uL (0-0.2); Basophils % (A) 1 %; Eosinophils # (A) 0.1 k/uL (0-0.7); Eosinophils % (A) 1 %; HCT 36.6 % (39.0-53.0); Lymphocytes # (A) 1.2 k/uL (1.0-4.8); Lymphocytes % (A) 10 %; MCH 29.7 pg (25.0-35.0); MCHC 32.8 g/dL (31.0-37.0); MCV 90.5 fL (80.0-100.0); Mean Platelet Volume 8.2; Monocytes # (A) 0.8 k/uL (0-1.0); Monocytes % (A) 6 %; Neutrophils # (A) 9.8 k/uL (1.3-7.7); Neutrophils % (A) 81 %; Platelet Count 425 k/uL (150-450); RBC 4.05 m/uL (4.30-5.90); RDW 14.4 % (11.5-15.5); WBC 12.1 k/uL (3.8-10.6)
--- NOTE | 2020-01-28 23:15 | XR ---
EXAMINATION TYPE: XR chest 2V DATE OF EXAM: 01/28/2020 COMPARISON: 07/21/2019 HISTORY: Difficulty breathing. TECHNIQUE: FINDINGS: There is increased density over the left hemithorax consistent with large pleural effusion. There is increased density in the left pulmonary hilum. Right lung shows coarse interstitial infiltr ate. Heart appears enlarged. IMPRESSION: Compared to old exam there is development of a masslike density at the left pulmonary hil um with increased density over the left lung consistent with pleural fluid and infiltrate. Tumor is p ossible. Follow-up is recommended. There is some diffuse interstitial infiltrate in the right lung.
[2020-01-28 23:18] LABS: Albumin 3.4 g/dL (3.5-5.0); Calcium 8.8 mg/dL (8.4-10.2); Potassium 4.6 mmol/L (3.5-5.1); Total Protein 6.3 g/dL (6.3-8.2)
[2020-01-28 23:35] LABS: C Reactive Protein 150.7 mg/L (<10.0)
[2020-01-28 23:37] LABS: INR 1.1 (<1.2); Partial Thromboplastin Time 25.3 sec (22.0-30.0); Prothrombin Time 11.6 sec (9.0-12.0)
[2020-01-29 00:06] LABS: D-Dimer 9.9 mg/L FEU (<0.60)
[2020-01-29] MEDS ORDERED: SODIUM CHLORIDE 0.9% 1,000 ML IV STA (00:16)
[2020-01-29] MEDS ORDERED: AZITHROMYCIN 500 MG in SODIUM CHLORIDE 0.9% 250 ML IVPB STA (00:59)
[2020-01-29] MEDS ORDERED: ENOXAPARIN 120 MG/0.8 ML SYRINGE SQ STA (00:59)
[2020-01-29] MEDS ORDERED: DILTIAZEM DRIP BOLUS FROM BAG 1 MG SOLN IV ONE (01:12)
[2020-01-29] MEDS ORDERED: PNEUMONIA PROTOCOL UTILIZED 1 EACH MISC PO PRN (01:12)
--- NOTE | 2020-01-29 01:31 | CT ---
EXAM: CT Chest Without Intravenous Contrast CLINICAL HISTORY: ITS.REASON CT Reason: pain TECHNIQUE: Axial computed tomography images of the chest without intravenous contrast. CTDI is 8.57 mGy and DLP is 385.2 mGy-cm. This CT exam was performed using one or more of the following dose reduction techniques: automated exposure control, adjustment of the mA and/or kV according to patient size, and/or use of iterative reconstruction technique. COMPARISON: 01/28/2020. FINDINGS: Lungs: Patchy airspace disease is noted throughout the right mid lower lung zones worrisome for atypical pneumonias. There appears to be significant atelectasis at the right upper lobe of uncertain etiology. Patchy airspace disease at the left lung base again worrisome for atypical pneumonia. Pleural space: Evaluation of the right pulmonary parenchyma reveals small right pleural effusion. Moderate to large left pleural effusion is noted. There is a loculated component of the right pleural effusion at the right apex. No pneumothorax. Heart: Mild cardiomegaly. No significant pericardial effusion. Mediastinum: Small hiatal hernia and probable minimal distal esophagitis. 3.6 x 2.8 cm subcarinal lymphadenopathy is noted. Thyroid: Thyroid gland is unremarkable. Bones/joints: Moderate degenerative disc disease of the thoracic spine. No acute fracture. No dislocation. Soft tissues: Unremarkable. Vasculature: Unremarkable. No thoracic aortic aneurysm. Lymph nodes: See above. Liver: Fatty infiltration of the liver. Kidneys and ureters: Nonspecific stranding about the perinephric spaces. Simple right renal cysts, partially visualized. No follow-up is advised. Stomach and bowel: Interposition of large bowel loops anterior to the liver. IMPRESSION: 1. Patchy confluent airspace disease both lungs worrisome for a Covid-19 pneumonia. 2. Bilateral pleural effusions, left side greater than the right side. 3. Loculated component of left pleural effusion at the left apex. 4. There is a near total atelectasis of the left upper lobe of uncertain etiology. Further workup is advised. 5. Subcarinal lymphadenopathy. 6. Cardiomegaly and ASCVD. 7. Small hiatal hernia and probable distal esophagitis per 8. Fatty infiltration of the liver. 9. Nonspecific stranding about the perinephric spaces.
[2020-01-29] MEDS: DILTIAZEM 125 MG in SODIUM CHLORIDE 0.9% 100 ML IV SCH (02:06)
[2020-01-29] MEDS ORDERED: FAMOTIDINE 20 MG/2 ML VIAL IV STA (02:40)
[2020-01-29] MEDS ORDERED: diphenhydrAMINE 50 MG/ML 1 ML VIAL IVP STA (02:43)
--- NOTE | 2020-01-29 02:54 | XR ---
EXAM: XR Chest, 1 View CLINICAL HISTORY: ITS.REASON XR Reason: chesat abdomen presure TECHNIQUE: Frontal view of the chest. COMPARISON: 07/21/2019. FINDINGS: Lungs: Patchy airspace disease in the mid lower lung zones bilaterally, possibly the basilar pulmonary edema. Atypical pneumonia cannot be excluded. Pleural space: Moderate left pleural effusion. No pneumothorax. Heart: Cardiomegaly. Mediastinum: Unremarkable. Bones/joints: Osteopenia. IMPRESSION: 1. Cardiomegaly. 2. Moderate to large left pleural effusion. 3. Presumed there is a pulmonary edema. 4. Osteopenia. 5. Atypical pneumonia cannot be excluded and clinical correlation is advised to 6. Atherosclerotic disease of the aortic knob. 7. Clinical correlation is advised to assess for congestive heart failure.
[2020-01-29 02:56] LABS: Glucose,Whole Blood 212 mg/dL (75-99)
[2020-01-29] MEDS ORDERED: MORPHINE SULFATE 2 MG/ML SYRINGE IVP STA ×2 (02:56→07:34)
[2020-01-29] MEDS ORDERED: LORazepam 2 MG/ML INJ IV STA (02:58)
[2020-01-29] MEDS: IPRATROPIUM-ALBUTEROL 3 ML NEB INHALATION SCH ×4 (08:08→19:10)
--- NOTE | 2020-01-29 08:36 | US ---
EXAMINATION TYPE: US chest DATE OF EXAM: 01/29/2020 COMPARISON: Radiograph same day CLINICAL HISTORY: 89-year-old male Left pleural effusion. TECHNIQUE: Targeted ultrasound of the posterior lower left hemithorax FINDINGS: EXAM MEASUREMENTS: Left Pleural Effusion pocket size: 9.9 cm Left skin surface to fluid distance: 3.0 cm Left side marked for possible thoracentesis outside the dept. Pulmonologists are able to review the images in the patient?s EMR. IMPRESSIONS: Moderate left pleural effusion.
--- NOTE | 2020-01-29 11:35 | CONS ---
CONSULTATION PULMONARY/CRITICAL CARE CONSULTATION: DATE OF SERVICE: January 29, 2020 REASON FOR CONSULTATION: Progressive shortness of breath and suspected lung cancer. HISTORY OF PRESENT ILLNESS: This is an 89-year-old patient who I saw in consultation back in June of this year. At that time, he presented with shortness of breath and was found to have acute hypoxemic respiratory failure secondary to fluid overload. In addition, the patient had a mass in his left upper lobe measuring 1.8 cm, which needed followup. I suspected lung cancer. He does have a history of hypertension, hyperlipidemia, previous tobacco use. Anyway, at that time, the patient was discharged from the hospital on the . The patient saw me in the office subsequent to that, and he was with his daughter. At that time, the patient did not want any further workup for his left lung mass. In fact, the patient was very resistant to anything more being done. Anyway, he presents to the emergency department on January [address] Alas there. He was complaining about being short of breath. It appears that the lesion in the left chest has progressed. I did speak to the daughter who was at the bedside. The patient probably is a good candidate for hospice. She agrees with that. She does not even think the patient would even want a left-sided thoracentesis if there was fluid there to be drained. Anyway, the patient apparently went for a CT scan. While in the emergency room, he became much more short of breath. Currently, he is on BiPAP of 14/6 and 60%. Ultrasound of the left chest was ordered. He is not receiving any IV fluids. CURRENT HOME MEDICATIONS: Include simvastatin, aspirin, Lasix, albuterol inhaler, updrafts with albuterol, multivitamins and Ultram. ALLERGIES: IVP DYE. MEDICAL HISTORY: Heart failure, hyperlipidemia, hypertension, skin cancer, suspected lung cancer, and irregular heartbeat/atrial fibrillation. SURGICAL HISTORY: Unremarkable. SOCIAL HISTORY: Positive for previous tobacco use. Denies any alcohol or illicit drug use. FAMILY HISTORY: Noncontributory. REVIEW OF SYSTEMS: CONSTITUTIONAL weakness. NEUROLOGIC negative. HEENT negative. CARDIOVASCULAR: Shortness of breath. GI negative. negative. RHEUMATOLOGIC negative. IMMUNOLOGIC negative. ENDOCRINOLOGIC negative. DERMATOLOGIC negative. PHYSICAL EXAMINATION: VITAL SIGNS: Current vital signs are reviewed. His temperature is 97.4, T-max 98.8, heart rate 87 and irregular, respiratory rate 20. Blood pressure 100/67, mean 78, saturations are 99% on BiPAP. GENERAL: He appears reasonably comfortable. He is quite pale. He is very lethargic. HEENT: Examination is grossly unremarkable. BiPAP mask in place. NECK: Supple full range of motion. CARDIOVASCULAR: Examination reveals regular rhythm and rate. Heart rate 87 beats per minute. S1, S2 normal. LUNGS: Reveal diminished breath sounds at both bases, more so on the left than on the right. A few scattered rhonchi. ABDOMEN: Soft. EXTREMITIES are intact. No edema. SKIN: Without rash. NEUROLOGIC: Examination is difficult to assess. He does arouse and does move all 4 extremities. LABS: Reviewed. White count 12.1, hemoglobin 12, hematocrit 36.6, platelet count 425,000. PT/INR, PTT normal. D-dimer 9.90. Sodium 132, potassium 4.6, chloride 99, CO2 24, anion gap is 9. BUN and creatinine were 16 and 0.85. His troponins were 0.039, 0.035 and 0.050. C-reactive protein 151. N-terminal proBNP 7100. Albumin 3.4. COVID testing was negative. IMAGING PROCEDURE: The patient had a chest x-ray. It showed a masslike density in the left pulmonary hilum with increased density of the left lung consistent with pleural fluid and/or infiltrate. EKG showed a sinus rhythm with left bundle branch block. A chest CT showed patchy confluent airspace disease in both lungs, worrisome for COVID- 19 pneumonia, bilateral pleural effusions, left side greater than right, loculated component of the left pleural effusion at the left apex, near-total atelectasis of the left upper lobe, possibly related to underlying malignancy, subcarinal lymphadenopathy, cardiomegaly, small hiatal hernia, fatty infiltration of liver, and nonspecific stranding about the perinephric spaces. A repeat chest x-ray today showed similar findings as to the previous x-ray. Ultrasound is currently pending. Medications are reviewed. The patient is on Zithromax, was on Cardizem at 5 mg an hour, Rocephin, and updrafts. ASSESSMENT: 1. 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 2. Recent admission to the hospital back in June for an episode of congestive heart failure. 3. History of skin cancer. 4. History of congestive heart failure. 5. History of hyperlipidemia. 6. History of hypertension. 7. Prior history of heavy tobacco use. PLAN: When I met with the patient after his last hospitalization, he was with his daughter. He was very clear about not wanting anything done at all. We offered him a number of different options including doing nothing, a followup CT scan, and a PET scan. He chose to do nothing. His daughter is at the bedside today. She is in agreement that currently, the patient does not want anything done. We did talk about palliative left- sided thoracentesis. We will wait for the ultrasound. I will put in a hospice referral. No additional recommendations are made. Therapeutics and treatments here should focus more on comfort more than interventions and other issues. We will continue to follow. No additional recommendations are made. Prognosis obviously is very poor. MMODL / IJN: [id number] /
[2020-01-29] MEDS ORDERED: HEPARIN SODIUM,PORCINE 5,000 UNIT/ML 1 ML VIAL IV STA (11:40)
[2020-01-29] MEDS: ASPIRIN 81 MG PO SCH (12:20)
[2020-01-29] MEDS: ATORVASTATIN 20 MG TAB PO SCH (12:20)
[2020-01-29] MEDS: HEPARIN SOD,PORK IN 0.45% NACL 25,000 UNIT in 0.45% NACL 1 250ML.BAG IV SCH (12:22)
--- NOTE | 2020-01-29 15:03 | ECHOF ---
Referral Reason:afib MEASUREMENTS -------- HEIGHT: 167.6 cm WEIGHT: 77.1 kg BP: 113/60 RVIDd: 3.7 cm (< 3.3) IVSd: 1.6 cm (0.6 - 1.1) LVIDd: 5.1 cm (3.9 - 5.3) LVPWd: 1.8 cm (0.6 - 1.1) IVSs: 1.8 cm LVIDs: 4.0 cm LVPWs: 2.0 cm LAESV Index (A-L): 50.68 ml/m Ao Diam: 3.7 cm (2.0 - 3.7) AV Cusp: 2.2 cm (1.5 - 2.6) MV EXCURSION: 17.009 mm (> 18.000) MV EF SLOPE: 97 mm/s (70 - 150) EPSS: 1.2 cm AR PHT: 409 ms RAP: 5.00 mmHg RVSP: 41.10 mmHg FINDINGS -------- This was a technically adequate study. The left ventricular size is normal. There is moderate concentric left ventricular hypertrophy. T here is moderate global hypokinesis of LV . Overall left ventricular systolic function is mild-mode rately impaired with, an EF between 40 - 45 %. The right ventricle is mildly enlarged. LA is severely dilated >40 ml/m2 The right atrium is mildly enlarged. Interatrial and interventricular septum intact. There is moderate aortic valve sclerosis. There is mild aortic regurgitation. There is no evidenc e of aortic stenosis. Severe mitral regurgitation is present. Moderate tricuspid regurgitation present. There is moderate pulmonary hypertension. The right katie tricular systolic pressure, as measured by Doppler, is 41.10mmHg. Trace/mild (physiologic) pulmonic regurgitation. The aortic root size is normal. There is no pericardial effusion. CONCLUSIONS -------- 1. The left ventricular size is normal. 2. There is moderate concentric left ventricular hypertrophy. 3. There is moderate global hypokinesis of LV . 4. Overall left ventricular systolic function is mild-moderately impaired with, an EF between 40 - 45 %. 5. The right ventricle is mildly enlarged. 6. LA is severely dilated >40 ml/m2 7. The right atrium is mildly enlarged. 8. There is moderate aortic valve sclerosis. 9. There is mild aortic regurgitation. 10. Severe mitral regurgitation is present. 11. Moderate tricuspid regurgitation present. 12. There is moderate pulmonary hypertension. 13. The right ventricular systolic pressure, as measured by Doppler, is 41.10mmHg. 14. Trace/mild (physiologic) pulmonic regurgitation. DRILL SETUP OPERATOR: Keri May RDCS
--- NOTE | 2020-01-29 15:11 | CONS ---
CONSULTATION HISTORY OF PRESENT ILLNESS: Gorge is an 89-year-old gentleman with history of COPD and dyslipidemia, who presented to the hospital with shortness of breath. The patient has recently been evaluated for lung mass and he also has pleural effusion. On his initial presentation, he was in atrial fibrillation with rapid ventricular rate and subsequently converted back to sinus rhythm and is currently in sinus rhythm. I am starting him on IV heparin. At this time evaluation even on BiPAP and appears short of breath. Denies any chest pain, leg edema, PND. His clinical presentation seems to be due to a combination of pleural effusion and atrial fibrillation. He is back in sinus rhythm. I will anticoagulate him currently on heparin once we make a decision about the thoracentesis and oral anticoagulant. PAST MEDICAL HISTORY: Significant for hypertension, suspected lung cancer, paroxysmal atrial fibrillation, heart failure, dyslipidemia. MEDICATIONS: Medications at home include aspirin, Simvastatin, Lasix, amiodarone. SOCIAL HISTORY: Significant for smoking. There is no history of EtOH abuse or drug abuse. FAMILY HISTORY: Negative for premature coronary artery disease. SOCIAL HISTORY: Negative for current smoking, ETOH abuse or drug abuse. REVIEW OF SYSTEMS: HEENT is unremarkable. Cardiac as described above. Respiratory as described above. GI negative. Genitourinary negative. Allergy/immunology negative. Skin negative. Musculoskeletal negative for arthritis. Psychosocial negative. Endocrine negative. Derm negative. Constitutional negative. Oncological negative. HEALTHCARE SPECIALIST negative. Rest of the system review is not relevant. PHYSICAL EXAM: Patient appears in respiratory distress. Heart rate is 84 beats per minute. Blood pressure is 113/62, respiratory is 24. He is on a BiPAP machine . There is no jugular venous distention. Chest exam reveals diminished air entry at the bases with occasional rhonchi. Heart exam reveals first and second heart sounds with systolic murmur at the left lower sternal border. Abdomen is soft. Exam of the extremities reveals mild edema. Peripheral pulses are felt. LAB: Show a hemoglobin of 12, platelet count is 425, potassium 4.6, creatinine 0.8. Troponin is elevated at 0.03, 0.03 and 0.05. Coronavirus is negative. ASSESSMENT: 1. Shortness of breath secondary to pleural effusion. 2. Paroxysmal atrial fibrillation with rapid ventricular rate. 3. Elevated troponin probably related to the tachycardia. PLAN: Will treat the patient with aspirin, Lipitor, stop the IV Cardizem, start the patient on a beta hany and Toprol-XL 25 mg daily and start him on IV heparin. MMODL / IJN: [id number] /
[2020-01-29] MEDS: AZITHROMYCIN 500 MG in SODIUM CHLORIDE 0.9% 250 ML IVPB SCH (21:05)
--- NOTE | 2020-01-29 22:31 | P.HPIM ---
History of Present Illness H&P Date: 01/29/20 Chief Complaint: Short of breath History of presenting complaint: This is a pleasant 89-year-old patient of Dr. Melvin. Patient was here in the hospital in June of this year. He presented then with low back pain. 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 Patient subsequently went into respiratory failure. Computed tomography scan of the chest did show a lingular mass. Patient also has hypertension hyperlipidemia. [id number] smoking history. 2-D echocardiogram showed EF of 40-45%. Subsequently he did follow up with his doctor to Dr. Mills's office and did not want to have any further workup. Patient now presents with 1 week of progressive shortness of breath. Congested. Not able to expectorate. No fever no chills. No loss of smell or taste. Decreased appetite. No headache. Patient's daughter is at bedside. Patient progressively has been slowing down the last few months. Since presenting to the ER patient's progressively gotten worse became more short of breath requiring BiPAP. Patient also noted to be in atrial fibrillation with a rapid ventricular rate Review of systems: GEN.: Tired decreased appetite EYES: None HEENT: None NECK: None RESPIRATORY: As above CARDIOVASCULAR: None GASTROINTESTINAL: None GENITOURINARY: None MUSCULOSKELETAL: Joint pains LYMPHATICS: None HEMATOLOGICAL: None PSYCHIATRY: None NEUROLOGICAL: None Past medical history to include: Left lung lingular mass patient does not want any further workup, CHF EF 40-45%, hypertension, hyperlipidemia Social history: . Smoked about half a pack a day for over 30 years. Stopped about 20 years ago. Physical examination: VITAL SIGNS: 97.4, 94, 18, 128/76, 94% on room air-upon presentation not requiring a BiPAP GENERAL: BMI 27.4, laying in bed, short of breath on a BiPAP. EYES: Pupils equal. Conjunctiva normal. HEENT: External appearance of nose and ears normal, oral cavity grossly normal. NECK: JVD unable to assess; masses not palpable. HEART: First and second heart sounds are normal; no edema. LUNGS: Respiratory rate increased, accessory muscles are working, not able to speak in full sentences diminished breath sounds wheezing. ABDOMEN: Soft, nontender, liver spleen not palpable, no masses palpable. PSYCH: [Alert and oriented x3; mood and affect anxious l. NEUROLOGICAL: Cranial nerves grossly intact; no facial asymmetry, power and sensation grossly intact. LYMPHATICS: No lymph nodes palpable in the axilla and neck, INVESTIGATIONS, reviewed in the clinical context: White count 12.1 hemoglobin 12 increased neutrophils d-dimer 9.9 potassium 4.6 corrected creatinine 0.85 Troponin I 0.039 CRP 150.7 proBNP 7100 EKG tracing personally reviewed by me-atrial fibrillation with a left bundle- branch block pattern, heart rate of 134 Chest x-ray film personally reviewed by me-mass at the left hilum. Fluid and infiltrate. Computed tomography scan of the chest without IV contrast-patchy airspace disease throughout the right mid lower lobe sounds. Atelectasis at the right upper lobe. Patchy upper disease of the left lung base moderate to large left pleural effusion noted. Low-grade component of right pleural effusion. DJD of thoracic spine. He had total atelectasis of left upper lobe. Cardiomegaly. Fatty infiltration of the liver. Subgaleal no lymphadenopathy. Assessment and plan: -This patient in June of this year was diagnosed to have a lingular mass. Patient does not wanted to have a follow-up after he went to Dr. Bailey's office. 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 -Patient now presents with congested chest could be postobstructive pneumonia, lymphangitic spread, bacterial pneumonia. Patient has been started on IV Zithromax and ceftriaxone. -Acute COPD exacerbation in an ex-smoker. Patient started on bronchodilators. We'll add IV Solu-Medrol -Acute severe hypoxic respiratory failure multifactorial but is currently progressed to using a BiPAP -Paroxysmal atrial fibrillation with a rapid ventricular rate, patient IV Cardizem -Left bundle-branch block pattern and follow that-hyperlipidemia continue with Zocor -Acute on chronic congestive heart failure exacerbation from systolic dysfunction EF 40-45% Additionally: Care was discussed with her daughter the bedside. Consultation was made to pulmonary cardiology. Prognosis guarded. Given patient's age multiple comorb idities that may be the leading towards hospice. Patient at least 2 nights stay in the hospital with a very guarded prognosis. Past Medical History Past Medical History: Cancer, Heart Failure, Hyperlipidemia, Hypertension Additional Past Medical History / Comment(s): irregular heartbeat, skin CA History of Any Multi-Drug Resistant Organisms: None Reported Past Surgical History: No Surgical Hx Reported Past Anesthesia/Blood Transfusion Reactions: No Reported Reaction Past Psychological History: No Psychological Hx Reported Smoking Status: Former smoker Past Alcohol Use History: None Reported Past Drug Use History: None Reported Medications and Allergies Home Medications Medication Instructions Recorded Confirmed Type Simvastatin 40 mg PO DAILY 07/19/19 01/29/20 History Aspirin [[place] Aspirin EC] 81 mg PO DAILY 09/17/19 01/29/20 History Furosemide [Lasix] 40 mg PO DAILY 09/17/19 01/29/20 History Albuterol Inhaler [Ventolin Hfa 1 - 2 puff INHALATION RT-Q6H PRN 01/29/20 01/29/20 History Inhaler] Albuterol Nebulized [Ventolin 3 ml INHALATION RT-Q6H PRN 01/29/20 01/29/20 History Nebulized] Multivitamin with Iron 1 tab PO DAILY 01/29/20 01/29/20 History [Multivitamins with Iron] traMADol HCL [Ultram] 50 mg PO BID PRN 01/29/20 01/29/20 History Allergies Allergy/AdvReac Type Severity Reaction Status Date / Time Iodinated Contrast Media AdvReac Severe shortness Verified 01/29/20 00:19 of breath Physical Exam Vitals: Vital Signs Temp Pulse Resp BP Pulse Ox 01/29/20 09:49 87 18 111/66 99 01/29/20 08:27 87 20 100/67 99 01/29/20 08:13 89 01/29/20 07:44 96 22 128/63 99 01/29/20 07:00 87 14 119/65 97 01/29/20 06:00 98.8 F 78 20 101/51 97 01/29/20 05:00 84 20 103/80 97 01/29/20 04:00 92 14 96/53 97 01/29/20 03:50 97 24 96/62 98 01/29/20 03:23 122 H 14 123/76 97 01/29/20 03:00 134 H 34 H 93/76 98 01/29/20 02:45 133 H 38 H 89 L 01/29/20 02:00 103 H 20 118/73 97 01/29/20 01:00 108 H 22 125/81 98 01/29/20 00:00 70 20 143/79 97 01/28/20 23:53 97 01/28/20 23:25 98 20 113/92 98 01/28/20 23:24 97 01/28/20 21:38 97.4 F L 94 18 128/76 94 L Intake and Output 01/28/20 01/29/20 01/29/20 22:59 06:59 14:59 Intake Total 20.75 Balance 20.75 Intake: Intake, IV Titration 20.75 Amount Diltiazem 125 mg In 20.75 Sodium Chloride 0.9% 100 ml @ 5 MG/HR 5 mls/hr IV .Q24H [facility] Rx#:[id number] Other: Weight 77.111 kg Results CBC & Chem 7: 01/28/20 22:58 01/28/20 22:58 Labs: Abnormal Lab Results - Last 24 Hours (Table) 01/28/20 01/28/20 01/28/20 Range/Units 22:58 22:58 22:58 WBC 12.1 H (3.8-10.6) k/uL RBC 4.05 L (4.30-5.90) m/uL Hgb 12.0 L (13.0-17.5) gm/dL Hct 36.6 L (39.0-53.0) % Neutrophils # 9.8 H (1.3-7.7) k/uL D-Dimer 9.90 H (<0.60) mg/L FEU Sodium 132 L (137-145) mmol/L Glucose 139 H (74-99) mg/dL POC Glucose (mg/dL) (75-99) mg/dL Troponin I (0.000-0.034) ng/mL C-Reactive Protein 150.7 H (<10.0) mg/L Albumin 3.4 L (3.5-5.0) g/dL 01/28/20 01/29/20 01/29/20 Range/Units 22:58 02:24 02:55 WBC (3.8-10.6) k/uL RBC (4.30-5.90) m/uL Hgb (13.0-17.5) gm/dL Hct (39.0-53.0) % Neutrophils # (1.3-7.7) k/uL D-Dimer (<0.60) mg/L FEU Sodium (137-145) mmol/L Glucose (74-99) mg/dL POC Glucose (mg/dL) 212 H (75-99) mg/dL Troponin I 0.039 H* 0.035 H* (0.000-0.034) ng/mL C-Reactive Protein (<10.0) mg/L Albumin (3.5-5.0) g/dL 01/29/20 Range/Units 05:23 WBC (3.8-10.6) k/uL RBC (4.30-5.90) m/uL Hgb (13.0-17.5) gm/dL Hct (39.0-53.0) % Neutrophils # (1.3-7.7) k/uL D-Dimer (<0.60) mg/L FEU Sodium (137-145) mmol/L Glucose (74-99) mg/dL POC Glucose (mg/dL) (75-99) mg/dL Troponin I 0.050 H* (0.000-0.034) ng/mL C-Reactive Protein (<10.0) mg/L Albumin (3.5-5.0) g/dL
[2020-01-30] MEDS: traMADol 50 MG TAB PO PRN (01:45)
[2020-01-30 02:28] LABS: Glucose,Whole Blood 247 mg/dL (75-99)
[2020-01-30 03:19] LABS: Basophils % (A) 0 %; Eosinophils # (A) 0.1 k/uL (0-0.7); Eosinophils % (A) 0 %; HCT 39.1 % (39.0-53.0); HGB 11.9 gm/dL (13.0-17.5); Hypochromasia Marked; Lymphocytes # (A) 1.8 k/uL (1.0-4.8); Lymphocytes % (A) 7 %; MCH 29.2 pg (25.0-35.0); MCHC 30.4 g/dL (31.0-37.0); Mean Platelet Volume 8.2; Monocytes # (A) 1.5 k/uL (0-1.0); Monocytes % (A) 6 %; Neutrophils % (A) 85 %; Platelet Count 532 k/uL (150-450); RBC 4.09 m/uL (4.30-5.90); RDW 14.5 % (11.5-15.5); WBC 24.5 k/uL (3.8-10.6)
[2020-01-30 03:20] LABS: MCV 95.8 fL (80.0-100.0)
[2020-01-30] MEDS: methylPREDNISolone SOD SUCCI 40 MG/ML 1 ML VIAL IV SCH ×4 (05:37→23:49)
[2020-01-30] MEDS: DILTIAZEM 125 MG in SODIUM CHLORIDE 0.9% 100 ML IV SCH ×2 (05:44→20:58)
[2020-01-30] MEDS: IPRATROPIUM-ALBUTEROL 3 ML NEB INHALATION SCH ×4 (09:01→20:34)
[2020-01-30] MEDS: ASPIRIN 81 MG PO SCH (09:04)
[2020-01-30] MEDS: ATORVASTATIN 20 MG TAB PO SCH (09:04)
--- NOTE | 2020-01-30 09:27 | XR ---
. EXAMINATION TYPE: XR chest 1V DATE OF EXAM: 01/30/2020 COMPARISON: 01/29/2020 HISTORY: 87-year-old male pneumonia TECHNIQUE: Single frontal view of the chest is obtained. FINDINGS: Heart upper limits of normal in size. Patchy airspace opacities especially in the mid and lower lungs not significantly changed. Medial left upper lobe opacity is unchanged. IMPRESSION: 1. Patchy bilateral airspace disease is similar. 2. Continued left upper lobe collapse. Correlate to exclude central mucous plugging or other center l ocated obstructing endobronchial lesion. 3. Continued moderate left effusion.
[2020-01-30] MEDS: HEPARIN SOD,PORK IN 0.45% NACL 25,000 UNIT in 0.45% NACL 1 250ML.BAG IV SCH (17:18)
--- NOTE | 2020-01-30 17:48 | PN ---
PROGRESS NOTE This is an 89-year-old gentleman who I saw in the emergency room yesterday. The patient came in with difficulty breathing and suspected lung cancer. The patient had been in the hospital previously back in June. At that time, I saw him and then I saw him in followup in the office. On this admission, he came in with acute hypoxemic respiratory failure. The patient has a mass in his left lung. Initially, when I saw him in the clinic, the patient and his daughter did not want anything more done. I gave him a couple options including doing nothing, repeating CAT scan, and PET scan, and even biopsy. At that time, he wanted to do nothing more. I do suspect lung cancer in this patient. He does have a history of hypertension, hyperlipidemia, and previous tobacco use. So on January 27, he saw Dr. Alas in the emergency room with complaining of a short of breath. The lesion in the left chest has progressed. We spoke to the daughter again at the bedside in the ER. She suggested that he was a good candidate for hospice. She agree with it at that time. We even talked about whether not to do a left-sided thoracentesis. She was not excited about that. Anyway, in the emergency room, he was on BiPAP at 14/6 and 60%. Ultrasound was ordered. He did not receive any IV fluids. We went to see him today, he was still on BiPAP. He was also on some IV fluids, Cardizem drip, and IV heparin. Apparently, according to the nurse, the daughter has changed her mind about whether or not Mr. Spicer should be a DNR and proceed with hospice. PHYSICAL EXAMINATION: VITAL SIGNS: Current vital signs include temperature 97.7, heart rate 102, respiratory rate is mid 20s, blood pressure 117/62, mean 80 and saturations are 100% on the BiPAP. GENERAL: He appears in no acute distress. HEENT: Examination is grossly unremarkable. BiPAP mask in place. NECK: Supple full range of motion. CARDIOVASCULAR: Examination reveals evidence of atrial fibrillation. Heart rate in the mid 80s. S1, S2 normal. No distinct murmur. Heart sounds are distant. LUNGS: Reveal diminished breath sounds in the left chest. There are bibasilar crackles. Scattered rhonchi. ABDOMEN: Soft. EXTREMITIES are intact. No edema. SKIN: Without rash. NEUROLOGIC: Examination is brief but nonfocal. Seems quite lethargic. A chest ultrasound done on January 28 shows a left-sided pleural effusion 9.9 cm. LAB DATA: Reviewed. Currently, white count 24.5, hemoglobin 11.9, hematocrit 39.1, platelet count 532,000. PTT is 56. D-dimer 9.90. The rest of the labs are reviewed. His troponins were 0.039 and 0.050. N terminal proBNP is 7100. A Covid test was negative. Microbiology including blood cultures were negative. Chest CT shows patchy confluent airspace disease in both lungs, worrisome for COVID-19 pneumonia. In addition, there were bilateral effusions, left greater than right, and a loculated component of the left pleural effusion at the left apex. There is also near- total atelectasis of the left upper lobe, possibly related to underlying malignancy. There is significant subcarinal adenopathy, cardiomegaly, small hiatal hernia, fatty infiltration of the liver, and nonspecific stranding about the perinephric spaces. CURRENT MEDICATIONS: Reviewed. The patient is on aspirin, Lipitor, Zithromax, Cardizem drip, ceftriaxone, Lasix IV, heparin, DuoNeb, and Tramadol. ASSESSMENT: 1. 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 Previously, patient and patient's daughter did not want any additional interventions. 2. Recent admission to the hospital back in June for an episode of congestive heart failure. 3. History of skin cancer. 4. Chronic congestive heart failure. 5. Hyperlipidemia. 6. History of hypertension. 7. Prior history of heavy tobacco use, rule out chronic obstructive pulmonary disease. 8. Left-sided pleural effusion. PLAN: Yesterday in the emergency room, the daughter was adamant about not doing anything aggressive with her father. She also recommended hospice at that time, which I thought was a reasonable idea given his age and his chronic medical issues. Apparently she has changed her mind. The patient today was found to be on IV heparin and IV Cardizem. No plans to do a thoracentesis at this time. We will allow the primary to talk to the family more about interventions and what they want done. Additional recommendations and suggestions are forthcoming. Prognosis is guarded. We will continue to follow. MMODL / IJN: [id number] /
--- NOTE | 2020-01-30 18:54 | PN ---
PROGRESS NOTE This is an 82-year-old gentleman with history of COPD, dyslipidemia, who presented to hospital with shortness of breath and has pleural effusions and paroxysmal atrial fibrillation and elevated troponin. This morning, he is feeling better. Shortness of breath has improved. Heart rate is better controlled. Blood pressure is normal. He underwent an echocardiogram that showed severe mitral regurgitation with mild to moderately impaired LV function. On exam heart rate is around 100 beats, blood pressure is 113/60, O2 saturation is 100% on 50% FiO2. Chest exam reveals diminished air entry at the bases. Heart exam reveals first and second heart sounds and a systolic murmur at the apex. Abdomen is soft. Exam of extremities reveals mild edema. The patient is currently on aspirin, Lipitor, DuoNeb, Cardizem and IV heparin. I will continue him on his current medications. We will put him back on Lasix that he was on. MMODL / IJN: [id number] /
[2020-01-30] MEDS: AZITHROMYCIN 500 MG in SODIUM CHLORIDE 0.9% 250 ML IVPB SCH (20:10)
[2020-01-30 20:32] LABS: Glucose,Whole Blood 187 mg/dL (75-99)
--- NOTE | 2020-01-31 00:20 | P.PN ---
Progress Note - Text Progress Note Date: 01/31/20 Chief Complaint: Short of breath History of presenting complaint: This is a pleasant 89-year-old patient of Dr. Melvin. Patient was here in the hospital in June of this year. He presented then with low back pain. 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 Patient subsequently went into respiratory failure. Computed tomography scan of the chest did show a lingular mass. Patient also has hypertension hyperlipidemia. 25-fumm-xwdo smoking history. 2-D echocardiogram showed EF of 40-45%. Subsequently he did follow up with his doctor to Dr. Mills's office and did not want to have any further workup. Patient now presents with 1 week of progressive shortness of breath. Congested. Not able to expectorate. No fever no chills. No loss of smell or taste. Decreased appetite. No headache. Patient's daughter is at bedside. Patient progressively has been slowing down the last few months. Since presenting to the ER patient's progressively gotten worse became more short of breath requiring BiPAP. Patient also noted to be in atrial fibrillation with a rapid ventricular rate Admitted with-enlarging lung mass, postobstructive pneumonia, acute COPD exacerbation, acute hypoxic respiratory failure requiring BiPAP, uncontrolled atrial fibrillation. Started IV azithromycin, ceftriaxone, Cardizem drip, IV heparin drip. IV Solu-Medrol. Bronchodilators. Today-patient did tolerate a diet. Remains on IV antibiotics IV heparin drip. Cardizem drip. On BiPAP. Short of breath Review of systems: Was done for constitutional, cardiovascular, GI, pulmonary. relevant finding as above Active Medications Albuterol/Ipratropium (Ipratropium-Albuterol 3 Ml Neb) 3 ml INHALATION RT-QID [facility] Last Admin: 01/30/20 20:34 Dose: 3 ml Documented by: Aspirin (Aspirin 81 Mg) 81 mg PO DAILY [facility] Last Admin: 01/30/20 09:04 Dose: 81 mg Documented by: Atorvastatin Calcium (Atorvastatin 20 Mg Tab) 20 mg PO DAILY [facility] Last Admin: 01/30/20 09:04 Dose: 20 mg Documented by: Furosemide (Furosemide 10 Mg/Ml 4 Ml Vial) 40 mg IV DAILY [facility] Diltiazem HCl 125 mg/ Sodium (Chloride) 125 mls @ 5 mls/hr IV .Q24H [facility] Last Admin: 01/30/20 20:58 Dose: 5 mg/hr, 5 mls/hr Documented by: Ceftriaxone Sodium 2 gm/ (Sodium Chloride) 50 mls @ 100 mls/hr IVPB Q24H [facility] Last Admin: 01/30/20 22:49 Dose: 100 mls/hr Documented by: Azithromycin 500 mg/ Sodium (Chloride) 250 mls @ 250 mls/hr IVPB HS [facility] Last Admin: 01/30/20 20:10 Dose: 250 mls/hr Documented by: Heparin Sodium/Sodium Chloride (25,000 unit/ Sodium Chloride) 250 mls @ 9.253 mls/hr IV .Q24H [facility]; Protocol Last Admin: 01/30/20 17:18 Dose: 10 units/kg/hr, 7.711 mls/hr Documented by: Methylprednisolone Sodium Succinate (Methylprednisolone Sod Succi 40 Mg/Ml 1 Ml Vial) 40 mg IV Q8HR [facility] Last Admin: 01/30/20 23:49 Dose: 40 mg Documented by: Miscellaneous Information (Pneumonia Protocol Util[facility]) 1 each PO ONCE PRN PRN Reason: Per Protocol Tramadol HCl (Tramadol 50 Mg Tab) 50 mg PO BID PRN PRN Reason: Pain Last Admin: 01/30/20 01:45 Dose: 50 mg Documented by: Physical examination: VITAL SIGNS: 97.5, 106, 22, 122/78, 98% on BiPAP GENERAL: Declining in bed, short of breath on BiPAP EYES: Pupils equal. Conjunctiva normal. NECK: JVD unable to assess; masses not palpable. HEART: First and second heart sounds are normal; no edema. LUNGS: Respiratory rate increased, accessory muscles are working, not able to speak in full sentences diminished breath sounds wheezing. ABDOMEN: Soft, nontender, liver spleen not palpable, no masses palpable. PSYCH: [Alert and oriented x3; mood and affect anxious l. INVESTIGATIONS, reviewed in the clinical context: January 30: White count 24.5 hemoglobin 11.9 platelets 532 White count 12.1 hemoglobin 12 increased neutrophils d-dimer 9.9 potassium 4.6 corrected creatinine 0.85 Troponin I 0.039 CRP 150.7 proBNP 7100 EKG tracing personally reviewed by me-atrial fibrillation with a left bundle- branch block pattern, heart rate of 134 Chest x-ray film personally reviewed by me-mass at the left hilum. Fluid and infiltrate. Computed tomography scan of the chest without IV contrast-patchy airspace disease throughout the right mid lower lobe sounds. Atelectasis at the right upper lobe. Patchy upper disease of the left lung base moderate to large left pleural effusion noted. Low-grade component of right pleural effusion. DJD of thoracic spine. He had total atelectasis of left upper lobe. Cardiomegaly. Fatty infiltration of the liver. Subgaleal no lymphadenopathy. Assessment and plan: -Lung cancer-progressive. Patient does not want any further treatment has decli dustin the same in the past.. -Likely postobstructive pneumonia, right underlying gram-negative orgasm, slow to respond -Left upper lobe atelectasis collapse from progressive malignancy -Acute COPD exacerbation in an ex-smoker. Patient started on bronchodilators. We'll add IV Bpsw-Gqbisv-[id number] to respond -Acute severe hypoxic respiratory failure multifactorial but is currently progressed to using a BiPAP for slow to respond -Paroxysmal atrial fibrillation with a rapid ventricular rate, patient IV Cardizem -Left bundle-branch block pattern and follow that-hyperlipidemia continue with Zocor -Acute on chronic congestive heart failure exacerbation from systolic dysfunction EF 40-45% Plan: Continue patient IV Zithromax and ceftriaxone. Also IV Cardizem drip and IV heparin drip. On 50% BiPAP. Dr. Mills had did put in a consult for hospice yesterday. Patchy family including daughter was not sure. Advanced care planning: Had a lengthy talk with the patient's daughter Sarah. Did explain that the mass is growing since June of this year. The patient has chosen not to have any treatment. This postobstructive pneumonia. She does understand his guarded poor prognosis. She would like the patient her father to come back home. Hospice has been consulted for informational visit so patient can return home with family. Discussed with Dr. Mills. Patient's CODE STATUS is being changed to DO NOT RESUSCITATE. Total time spent about 25 minutes discussed with nurse..
[2020-01-31 06:08] LABS: Glucose,Whole Blood 210 mg/dL (75-99)
[2020-01-31] MEDS: IPRATROPIUM-ALBUTEROL 3 ML NEB INHALATION SCH ×4 (07:21→19:28)
[2020-01-31 08:39] LABS: Basophils % (A) 0 %; Eosinophils % (A) 0 %; HCT 35.7 % (39.0-53.0); HGB 11.2 gm/dL (13.0-17.5); Hypochromasia Slight; Lymphocytes # (A) 0.8 k/uL (1.0-4.8); Lymphocytes % (A) 4 %; MCH 29.1 pg (25.0-35.0); MCHC 31.4 g/dL (31.0-37.0); MCV 92.7 fL (80.0-100.0); Mean Platelet Volume 7.8; Monocytes # (A) 0.8 k/uL (0-1.0); Monocytes % (A) 4 %; Neutrophils # (A) 18.2 k/uL (1.3-7.7); Neutrophils % (A) 91 %; Platelet Count 458 k/uL (150-450); RBC 3.85 m/uL (4.30-5.90); RDW 14.7 % (11.5-15.5); WBC 19.9 k/uL (3.8-10.6)
[2020-01-31] MEDS ORDERED: FUROSEMIDE 10 MG/ML 4 ML VIAL IV SCH (09:00)
--- NOTE | 2020-01-31 09:46 | P.PN ---
Progress Note - Text Progress Note Date: 01/31/20 on today's evaluation, the patient is quite comfortable on oxygen 5 L about 2 by nasal cannula. The patient is quite comfortable. No signs of any significant respiratory distress. He seems to be a bit anxious. For that reason to live with the recommendations for addition of Xanax. I went over the consultation that was done by my partner. There was a direct discussion with the daughter and it seems that the patient is proceeding with hospice care today. Hospice has been consulted. The patient will be seen today by hospice. Meanwhile, we'll continue supporting this patient. I'm going to sign off this case.
[2020-01-31] MEDS ORDERED: ALPRAZolam 0.5 MG TAB PO PRN (09:47)
[2020-01-31] MEDS: ASPIRIN 81 MG PO SCH (10:13)
[2020-01-31] MEDS: methylPREDNISolone SOD SUCCI 40 MG/ML 1 ML VIAL IV SCH ×3 (10:13→23:05)
[2020-01-31] MEDS: ATORVASTATIN 20 MG TAB PO SCH (10:13)
[2020-01-31] MEDS: METOPROLOL TARTRATE 25 MG TAB PO SCH ×3 (10:15→21:20)
[2020-01-31] MEDS: APIXABAN 2.5 MG TABLET PO SCH ×2 (10:15→21:20)
[2020-01-31] MEDS ORDERED: FUROSEMIDE 10 MG/ML 4 ML VIAL IV STA (10:49)
[2020-01-31 11:24] VITALS: BMI 29.7
--- NOTE | 2020-01-31 11:29 | P.PN ---
Subjective This is a pleasant 89-year-old male past medical history significant for COPD and dyslipidemia. We are following secondary to new onset atrial fibrillation. The patient is going to discharge home today with hospice. Currently maintained on IV heparin infusion. Telemetry tracings reveal paroxysmal atrial fibrillation and multifocal atrial tachycardia currently. Blood pressure 119/72 heart rate 108 afebrile maintaining oxygen saturation on nasal cannula. Laboratory data reviewed, WBC 19.9, hemoglobin 11.2 platelets 458. He is seen and examined sitting up in bed in no acute distress. He denies worsening shortness of breath. He has no chest pain, dizziness or palpitations. Echocardiogram on admission reveals impaired LV systolic function with ejection fraction 40-45%, moderate aortic valve sclerosis, severe mitral regurgitation, moderate tricuspid regurgitation and moderate pulmonary hypertension with an RVSP of 41 mmHg. GENERAL: Well-appearing, well-nourished and in no acute distress. NECK: Supple without JVD or thyromegaly. LUNGS: Breath sounds clear to auscultation bilaterally. Respiration equal and unlabored. Scattered rhonchi and faint rales on the left. Diminished bilaterally. HEART: Irregular rate and rhythm with systolic ejection murmur at the apex and left sternal border, no rubs or gallops. S1 and S2 heard. EXTREMITIES: Normal range of motion, no edema. No clubbing or cyanosis. Peripheral pulses intact. 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 Dyslipidemia COPD PLAN Discontinue heparin infusion and initiate Eliquis 2.5 mg twice a day. Increase metoprolol to 25 mg 3 times a day for rate control. Increase IV Lasix to twice a day dosing. Nurse Practitioner note has been reviewed, I agree with a documented findings and plan of care. Patient was seen and examined. Objective - Vital Signs Vital signs: Vital Signs Temp 97.7 F 01/31/20 08:00 Pulse 108 H 01/31/20 11:20 Resp 20 01/31/20 08:00 BP 119/72 01/31/20 08:00 Pulse Ox 93 L 01/31/20 08:00 Intake & Output 01/30/20 01/31/20 01/31/20 18:59 06:59 18:59 Intake Total 735.958 Output Total 400 380 Balance 335.958 -380 Weight 83.5 kg Intake: IV 101.68 Diltiazem 125 mg In 40 Sodium Chloride 0.9% 100 ml @ 5 MG/HR 5 mls/hr IV .Q24H [facility] Rx#:[id number] Heparin Sod,Pork in 0.45% 61.68 NaCl 25,000 unit In 0.45 % NaCl 1 250ml.bag @ 12 UNITS/KG/HR 9.253 mls/hr IV .Q24H [facility] Rx#: [id number] Intake, IV Titration 274.278 Amount Diltiazem 125 mg In 104.25 Sodium Chloride 0.9% 100 ml @ 5 MG/HR 5 mls/hr IV .Q24H [facility] Rx#:[id number] Heparin Sod,Pork in 0.45% 170.028 NaCl 25,000 unit In 0.45 % NaCl 1 250ml.bag @ 12 UNITS/KG/HR 9.253 mls/hr IV .Q24H [facility] Rx#: [id number] Oral 360 Output: Urine 400 380 Other: Voiding Method Urinal # Voids 1 - Labs CBC & Chem 7: 01/31/20 08:04 01/28/20 22:58 Labs: Abnormal Lab Results - Last 24 Hours (Table) 01/30/20 01/31/20 01/31/20 Range/Units 20:31 06:07 08:04 WBC 19.9 H (3.8-10.6) k/uL RBC 3.85 L (4.30-5.90) m/uL Hgb 11.2 L (13.0-17.5) gm/dL Hct 35.7 L (39.0-53.0) % Plt Count 458 H (150-450) k/uL Neutrophils # 18.2 H (1.3-7.7) k/uL Lymphocytes # 0.8 L (1.0-4.8) k/uL APTT (22.0-30.0) sec POC Glucose (mg/dL) 187 H 210 H (75-99) mg/dL 01/31/20 Range/Units 08:04 WBC (3.8-10.6) k/uL RBC (4.30-5.90) m/uL Hgb (13.0-17.5) gm/dL Hct (39.0-53.0) % Plt Count (150-450) k/uL Neutrophils # (1.3-7.7) k/uL Lymphocytes # (1.0-4.8) k/uL APTT 40.9 H (22.0-30.0) sec POC Glucose (mg/dL) (75-99) mg/dL Microbiology - Last 24 Hours (Table) 01/29/20 01:45 Blood Culture - Preliminary Blood No Growth after 48 hours 01/29/20 02:24 Blood Culture - Preliminary Blood No Growth after 48 hours
[2020-01-31 12:15] LABS: Glucose,Whole Blood 201 mg/dL (75-99)
[2020-01-31] MEDS: LORazepam 2 MG/ML INJ IV PRN ×2 (14:01→22:04)
[2020-01-31] MEDS ORDERED: AZITHROMYCIN 500 MG TAB PO SCH (21:00)
[2020-01-31 21:18] VITALS: TEMP 97.3
[2020-01-31] MEDS: FUROSEMIDE 10 MG/ML 4 ML VIAL IV SCH (21:20)
--- NOTE | 2020-01-31 23:24 | P.PN ---
Progress Note - Text Progress Note Date: 01/31/20 Chief Complaint: Short of breath History of presenting complaint: This is a pleasant 89-year-old patient of Dr. Melvin. Patient was here in the hospital in June of this year. He presented then with low back pain. 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 Patient subsequently went into respiratory failure. Computed tomography scan of the chest did show a lingular mass. Patient also has hypertension hyperlipidemia. 37-niqa-xpdr smoking history. 2-D echocardiogram showed EF of 40-45%. Subsequently he did follow up with his doctor to Dr. Mills's office and did not want to have any further workup. Patient now presents with 1 week of progressive shortness of breath. Congested. Not able to expectorate. No fever no chills. No loss of smell or taste. Decreased appetite. No headache. Patient's daughter is at bedside. Patient progressively has been slowing down the last few months. Since presenting to the ER patient's progressively gotten worse became more short of breath requiring BiPAP. Patient also noted to be in atrial fibrillation with a rapid ventricular rate Admitted with-enlarging lung mass, postobstructive pneumonia, acute COPD exacerbation, acute hypoxic respiratory failure requiring BiPAP, uncontrolled atrial fibrillation. Started IV azithromycin, ceftriaxone, Cardizem drip, IV heparin drip. IV Solu-Medrol. Bronchodilators. Today-on BiPAP. Not able to reach much. Short of breath at rest. A. fib uncontrolled. emergency medical service manager informed be that hospice sternal arrange for things to be home for tomorrow. Review of systems: Was done for constitutional, cardiovascular, GI, pulmonary. relevant finding as above Active Medications Albuterol/Ipratropium (Ipratropium-Albuterol 3 Ml Neb) 3 ml INHALATION RT-QID [facility] Last Admin: 01/31/20 19:28 Dose: 3 ml Documented by: Apixaban (Apixaban 2.5 Mg Tablet) 2.5 mg PO BID [facility] Last Admin: 01/31/20 21:20 Dose: 2.5 mg Documented by: Aspirin (Aspirin 81 Mg) 81 mg PO DAILY [facility] Last Admin: 01/31/20 10:13 Dose: 81 mg Documented by: Atorvastatin Calcium (Atorvastatin 20 Mg Tab) 20 mg PO DAILY [facility] Last Admin: 01/31/20 10:13 Dose: 20 mg Documented by: Azithromycin (Azithromycin 500 Mg Tab) 500 mg PO HS [facility] Last Admin: 01/31/20 21:20 Dose: 500 mg Documented by: Furosemide (Furosemide 10 Mg/Ml 4 Ml Vial) 40 mg IV Q12HR [facility] Last Admin: 01/31/20 21:20 Dose: 40 mg Documented by: Ceftriaxone Sodium 2 gm/ (Sodium Chloride) 50 mls @ 100 mls/hr IVPB Q24H [facility] Last Admin: 01/31/20 21:20 Dose: 100 mls/hr Documented by: Lorazepam (Lorazepam 2 Mg/Ml Inj) 0.5 mg IV Q8HR PRN PRN Reason: Anxiety Last Admin: 01/31/20 22:04 Dose: 0.5 mg Documented by: Methylprednisolone Sodium Succinate (Methylprednisolone Sod Succi 40 Mg/Ml 1 Ml Vial) 40 mg IV Q8HR [facility] Last Admin: 01/31/20 23:05 Dose: 40 mg Documented by: Metoprolol Tartrate (Metoprolol Tartrate 25 Mg Tab) 25 mg PO TID [facility] Last Admin: 01/31/20 21:20 Dose: 25 mg Documented by: Miscellaneous Information (Pneumonia Protocol Utilized 1 Each [facility]) 1 each PO ONCE PRN PRN Reason: Per Protocol Tramadol HCl (Tramadol 50 Mg Tab) 50 mg PO BID PRN PRN Reason: Pain Last Admin: 01/30/20 01:45 Dose: 50 mg Documented by: Physical examination: VITAL SIGNS: 97.4, 99, 22, 112/71, 96% on BiPAP GENERAL: reclining, short of breath on BiPAP EYES: Pupils equal. Conjunctiva normal. NECK: JVD unable to assess; masses not palpable. HEART: First and second heart sounds are normal; no edema. LUNGS: Respiratory rate increased, accessory muscles are working, not able to speak in full sentences diminished breath sounds wheezing. ABDOMEN: Soft, nontender, liver spleen not palpable, no masses palpable. PSYCH: [Alert and oriented x3; mood and affect anxious l. INVESTIGATIONS, reviewed in the clinical context: January 30: White count 19.9 hemoglobin 11.2 January 29: White count 24.5 hemoglobin 11.9 platelets 532 White count 12.1 hemoglobin 12 increased neutrophils d-dimer 9.9 potassium 4.6 corrected creatinine 0.85 Troponin I 0.039 CRP 150.7 proBNP 7100 EKG tracing personally reviewed by me-atrial fibrillation with a left bundle- branch block pattern, heart rate of 134 Chest x-ray film personally reviewed by me-mass at the left hilum. Fluid and infiltrate. Computed tomography scan of the chest without IV contrast-patchy airspace disease throughout the right mid lower lobe sounds. Atelectasis at the right upper lobe. Patchy upper disease of the left lung base moderate to large left pleural effusion noted. Low-grade component of right pleural effusion. DJD of thoracic spine. He had total atelectasis of left upper lobe. Cardiomegaly. Fatty infiltration of the liver. Subgaleal no lymphadenopathy. Assessment and plan: -Lung cancer-progressive. Patient does not want any further treatment has declined the same in the past.. -Likely postobstructive pneumonia, right underlying gram-negative orgasm, slow to respond -Left upper lobe atelectasis collapse from progressive malignancy -Acute COPD exacerbation in an ex-smoker. Patient started on bronchodilators. We'll add IV [id number] to respond -Acute severe hypoxic respiratory failure multifactorial but is currently progressed to using a BiPAP for slow to respond -Paroxysmal atrial fibrillation with a rapid ventricular rate, patient IV Cardizem -Left bundle-branch block pattern and follow that-hyperlipidemia continue with Zocor -Acute on chronic congestive heart failure exacerbation from systolic dysfunction EF 40-45% -DO NOT RESUSCITATE Plan: continue supportive care for now. Plan for the patient to go home tomorrow with hospice.
[2020-02-01] MEDS ORDERED: FUROSEMIDE 10 MG/ML 4 ML VIAL IV STA (04:06)
--- NOTE | 2020-02-01 04:29 | XR ---
EXAM: XR Chest, 1 View CLINICAL HISTORY: ITS.REASON XR Reason: SOB TECHNIQUE: Frontal view of the chest. COMPARISON: 01/30/2020 IMPRESSION: Cardiomegaly with mild vascular congestion. Left pleural effusion with overlying atelectasis.
[2020-02-01] MEDS ORDERED: HALOPERIDOL LACTATE 5 MG/ML 1 ML VIAL IVP ONE ×2 (04:42→04:51)
--- NOTE | 2020-02-01 04:44 | P.EN ---
A team Note Patient seen and examined at the bedside. Discussed case with the RN who noted that the patient had worsening hypoxia throughout the night. He was given IV Lasix as per the A-team protocol. By time of evaluation at the bedside, the patient's hypoxia improved significantly with SpO2 97% on BiPAP. The patient's remaining vitals were R 21, P 77, and BP 109/68.The RN noted that she will contact primary team regarding any additional orders.
[2020-02-01 04:54] VITALS: BP 109/68; RESP 28
[2020-02-01 06:18] LABS: Glucose,Whole Blood 141 mg/dL (75-99)
[2020-02-01] MEDS: traMADol 50 MG TAB PO PRN (07:20)
[2020-02-01 08:27] LABS: Basophils % (A) 0 %; Eosinophils % (A) 0 %; HCT 34.6 % (39.0-53.0); HGB 11.3 gm/dL (13.0-17.5); Lymphocytes # (A) 0.5 k/uL (1.0-4.8); Lymphocytes % (A) 4 %; MCH 30.2 pg (25.0-35.0); MCHC 32.8 g/dL (31.0-37.0); MCV 92.1 fL (80.0-100.0); Mean Platelet Volume 7.9; Monocytes # (A) 0.6 k/uL (0-1.0); Monocytes % (A) 4 %; Neutrophils % (A) 92 %; Platelet Count 386 k/uL (150-450); RBC 3.75 m/uL (4.30-5.90); RDW 14.9 % (11.5-15.5); WBC 15.2 k/uL (3.8-10.6)
[2020-02-01] MEDS: IPRATROPIUM-ALBUTEROL 3 ML NEB INHALATION SCH ×2 (08:27→11:58)
[2020-02-01 08:42] VITALS: PULSE 108
[2020-02-01] MEDS: LORazepam 2 MG/ML INJ IV PRN (08:52)
[2020-02-01] MEDS: methylPREDNISolone SOD SUCCI 40 MG/ML 1 ML VIAL IV SCH (08:52)
[2020-02-01] MEDS: METOPROLOL TARTRATE 25 MG TAB PO SCH (09:01)
[2020-02-01] MEDS: ATORVASTATIN 20 MG TAB PO SCH (09:01)
[2020-02-01] MEDS: ASPIRIN 81 MG PO SCH (09:01)
[2020-02-01] MEDS: APIXABAN 2.5 MG TABLET PO SCH (09:01)
[2020-02-01] MEDS: FUROSEMIDE 10 MG/ML 4 ML VIAL IV SCH (09:08)
[2020-02-01] MEDS ORDERED: MORPHINE SULFATE 2 MG/ML SYRINGE IVP STA (12:00)
--- NOTE | 2020-02-02 21:04 | P.DS ---
Providers Date of admission: 01/29/20 01:12 Expected date of discharge: 02/01/20 Attending physician: Suman Pineda Consults: 01/29/20 01:09 Consult Physician Routine Consulting Provider: Duarte Jung Consult Reason/Comments: afib Do you want consulting provider notified?: Yes Consult Physician Routine Consulting Provider: [place] Consult Reason/Comments: sob Do you want consulting provider notified?: Yes Primary care physician: Jonathan [facility] Course: Chief Complaint: Short of breath History of presenting complaint: This is a pleasant 89-year-old patient of Dr. Melvin. Patient was here in the hospital in June of this year. He presented then with low back pain. 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 Patient subsequently went into respiratory failure. Computed tomography scan of the chest did show a lingular mass. Patient also has hypertension hyperlipidemia. 15-nqxu-grsi smoking history. 2-D echocardiogram showed EF of 40-45%. Subsequently he did follow up with his doctor to Dr. Mills's office and did not want to have any further workup. Patient now presents with 1 week of progressive shortness of breath. Congested. Not able to expectorate. No fever no chills. No loss of smell or taste. Decreased appetite. No headache. Patient's daughter is at bedside. Patient progressively has been slowing down the last few months. Since presenting to the ER patient's progressively gotten worse became more short of breath requiring BiPAP. Patient also noted to be in atrial fibrillation with a rapid ventricular rate Admitted with-enlarging lung mass, postobstructive pneumonia, acute COPD exacerbation, acute hypoxic respiratory failure requiring BiPAP, uncontrolled atrial fibrillation. Started IV azithromycin, ceftriaxone, Cardizem drip, IV heparin drip. IV Solu-Medrol. Bronchodilators. Remains in A. fib uncontrolled. Put on BiPAP. A lengthy discussion with Daughter and the patient. Decided to go under hospice. Consult for the same.. Today-on BiPAP. Arrangements being made. Coordinated with business case analyst Discussion and discharge planning more than 35 minutes Hospice Entrance Attendant: [facility] from pulmonary Physical examination: VITAL SIGNS: Heart rate 115, 32, 1 9 x 16, 96% on BiPAP GENERAL: reclining, short of breath on BiPAP EYES: Pupils equal. Conjunctiva normal. NECK: JVD unable to assess; masses not palpable. HEART: First and second heart sounds are normal; no edema. LUNGS: Respiratory rate increased, accessory muscles are working, not able to speak in full sentences diminished breath sounds wheezing. ABDOMEN: Soft, nontender, liver spleen not palpable, no masses palpable. PSYCH: [Alert and oriented x3; mood and affect anxious l. INVESTIGATIONS, reviewed in the clinical context: January 30: White count 19.9 hemoglobin 11.2 January 29: White count 24.5 hemoglobin 11.9 platelets 532 White count 12.1 hemoglobin 12 increased neutrophils d-dimer 9.9 potassium 4.6 corrected creatinine 0.85 Troponin I 0.039 CRP 150.7 proBNP 7100 EKG tracing personally reviewed by me-atrial fibrillation with a left bundle- branch block pattern, heart rate of 134 Chest x-ray film personally reviewed by me-mass at the left hilum. Fluid and infiltrate. Computed tomography scan of the chest without IV contrast-patchy airspace disease throughout the right mid lower lobe sounds. Atelectasis at the right upper lobe. Patchy upper disease of the left lung base moderate to large left pleural effusion noted. Low-grade component of right pleural effusion. DJD of thoracic spine. He had total atelectasis of left upper lobe. Cardiomegaly. Fatty infiltration of the liver. Subgaleal no lymphadenopathy. Assessment and plan: -Lung cancer-progressive. Patient does not want any further treatment has declined the same in the past.. -Likely postobstructive pneumonia, right underlying gram-negative orgasm, slow to respond -Left upper lobe atelectasis collapse from progressive malignancy -Acute COPD exacerbation in an ex-smoker. Patient started on bronchodilators. We'll add IV [id number] to respond -Acute severe hypoxic respiratory failure multifactorial but is currently progressed to using a BiPAP for slow to respond -Paroxysmal atrial fibrillation with a rapid ventricular rate, patient IV Cardizem -Left bundle-branch block pattern and follow that-hyperlipidemia continue with Zocor -Acute on chronic congestive heart failure exacerbation from systolic dysfunction EF 40-45% -DO NOT RESUSCITATE Disposition: Home with hospice Patient Condition at Discharge: Serious Plan - Discharge Summary Discharge Rx Participant: No New Discharge Prescriptions: New Cefuroxime Axetil [Ceftin] 500 mg PO BID #10 tab Ipratropium-Albuterol Nebulize [Duoneb 0.5 mg-3 mg/3 ml Soln] 3 ml INHALATION RT-QID ml Metoprolol Tartrate [Lopressor] 25 mg PO TID #60 tab Discontinued Simvastatin 40 mg PO DAILY Furosemide [Lasix] 40 mg PO DAILY Aspirin [Goldenrod Aspirin EC] 81 mg PO DAILY traMADol HCL [Ultram] 50 mg PO BID PRN PRN Reason: Pain Albuterol Nebulized [Ventolin Nebulized] 3 ml INHALATION RT-Q6H PRN PRN Reason: Shortness Of Breath Albuterol Inhaler [Ventolin Hfa Inhaler] 1 - 2 puff INHALATION RT-Q6H PRN PRN Reason: Shortness Of Breath Multivitamin with Iron [Multivitamins with Iron] 1 tab PO DAILY Discharge Medication List Cefuroxime Axetil [Ceftin] 500 mg PO BID #10 tab 02/01/20 [Rx] Ipratropium-Albuterol Nebulize [Duoneb 0.5 mg-3 mg/3 ml Soln] 3 ml INHALATION RT-QID ml 02/01/20 [Rx] Metoprolol Tartrate [Lopressor] 25 mg PO TID #60 tab 02/01/20 [Rx] Follow up Appointment(s)/Referral(s): Jonathan Melvin DO [Primary Care Provider] - 1-2 days [facility] [NON-STAFF] - [facility] [NON-STAFF] - Patient Instructions/Handouts: Hospice (DC) Activity/Diet/Wound Care/Special Instructions: bipap - per pulmonary Discharge Disposition: HOME WITH HOSPICE
== END 2020-02-01 13:26 | disposition hospice, home (50) | DRG 180 ==
LOC: EC 21:37 → 3SCARD 01-29 01:12
PROVIDERS: ADMIT Hospitalist; ATTEND Hospitalist
PROC: 5A09457 Assistance with Respiratory Ventilation, 24-96 Consecutive Hours, Continuous Positive Airway Pressure (ICD-10-PCS; principal; 2020-01-29)
DX: C34.92 Malignant neoplasm of unspecified part of left bronchus or lung (principal); J80 Acute respiratory distress syndrome; I50.23 Acute on chronic systolic (congestive) heart failure; J15.6 Pneumonia due to other Gram-negative bacteria; J44.0 Chronic obstructive pulmonary disease with (acute) lower respiratory infection; J44.1 Chronic obstructive pulmonary disease with (acute) exacerbation; J91.0 Malignant pleural effusion; I47.1 Supraventricular tachycardia; J98.11 Atelectasis; Z66 Do not resuscitate; Z51.5 Encounter for palliative care; F41.9 Anxiety disorder, unspecified; E78.5 Hyperlipidemia, unspecified; Z20.828 Contact with and (suspected) exposure to other viral communicable diseases; I08.1 Rheumatic disorders of both mitral and tricuspid valves; I44.7 Left bundle-branch block, unspecified; I27.20 Pulmonary hypertension, unspecified; I11.0 Hypertensive heart disease with heart failure; I48.0 Paroxysmal atrial fibrillation; M19.90 Unspecified osteoarthritis, unspecified site; Z79.82 Long term (current) use of aspirin; Z79.899 Other long term (current) drug therapy; Z91.041 Radiographic dye allergy status; Z87.891 Personal history of nicotine dependence; Z85.828 Personal history of other malignant neoplasm of skin
CPT/HCPCS: 36415; 71045; 71046; 71250; 76604; 80053; 83615; 83735; 83880; 84145; 84484; 85025; 85379; 85610; 85730; 86140; 87040; 87635; 93005; 93306; 94640; 94660; 94760; 96361; 96365; 96367; 96368; 96372; 96375; 96376; 99291